=== PATIENT | female | born 1950 | race Caucasian/White ===

== ENCOUNTER 2021-02-08 02:59 | Observation (INO) ==
[2021-02-08 04:00] LABS: Basophils % 0.4 % (0.0-0.8); Eosinophils # 0.1 10*3/uL (0.0-0.87); Eosinophils % 1.7 % (0.00-10.9); Hematocrit 31.9 VOL% (35.7-47.0); Hemoglobin 10.4 GM/DL (12.0-16.0); Immature Granulocytes % 0.6 %; Immature Granulocytes Absolute 0.04 #; Lymphocytes # 1.5 10*3/uL (1.4-4.0); Lymphocytes % 21.2 % (21.3-54.2); Mean Corpuscular HGB Conc 32.6 GM/DL (32-36); Mean Corpuscular Volume 86.2 FL (87-102); Mean Platelet Volume 11.2 FL (9.6-12.0); Monocytes % 9.5 % (1.7-12.7); Neutrophils % 66.6 % (38.7-73.9); Platelet Count 178 T/CUMM (130-400); Red Cell Distribution Width 12.6 % (9.3-17.3); White Blood Count 7.1 T/CUMM (4-12)
[2021-02-08 04:18] LABS: Alanine Aminotransferase 28 U/L (13-56); Albumin 3.5 G/DL (3.4-5.0); Alkaline Phosphatase 64 U/L (45-117); Aspartate Amino Transferase 17 U/L (0-37); Bilirubin,Total < 0.39 MG/DL (0.2-1.0); Blood Urea Nitrogen 15 MG/DL (7-18); Calcium 9.5 MG/DL (8.5-10.1); Carbon Dioxide 27 MMOL/L (21-32); Estimated Glom Filtration Rate 68 ML/MIN; Glucose 249 MG/DL (74-106); Osmolality,Calculated 287.4 MOS/KG (273-304); Sodium 140 MMOL/L (136-145); Total Protein 6.8 G/DL (5.0-7.5)
[2021-02-08 04:20] LABS: INR 1.1; PT Patient Result 11.4 SECS (9.8-11.9)
[2021-02-08] MEDS ORDERED: DEXTROSE 50% 25 GM/50 ML VIAL IV PRN (04:38)
[2021-02-08] MEDS ORDERED: ONDANSETRON 4 MG/2 ML VIAL IV PRN (04:38)
[2021-02-08] MEDS ORDERED: diphenhydrAMINE CAP 25 MG CAPSULE PO PRN (04:38)
[2021-02-08] MEDS ORDERED: hydrALAZINE 20 MG/1 ML VIAL IV PRN (04:38)
[2021-02-08] MEDS ORDERED: NICOTINE 21 MG/24 HR PATCH TRANSDERM PRN (04:38)
[2021-02-08] MEDS ORDERED: GLUCAGON 1 MG VIAL IM PRN (04:38)
[2021-02-08] MEDS ORDERED: NITROGLYCERIN SL 0.4 MG TABLET SL PRN (11:07)
[2021-02-08] MEDS: RANOLAZINE 500 MG TABLET PO SCH ×2 (12:31→21:34)
[2021-02-08] MEDS: ASPIRIN EC 81 MG TABLET PO SCH (12:32)
[2021-02-08] MEDS: ISOSORBIDE MONONITRATE 30 MG TABLET PO SCH ×2 (12:32→21:34)
[2021-02-08] MEDS: TICAGRELOR 90 MG TABLET PO SCH ×2 (12:32→21:34)
[2021-02-08] MEDS ORDERED: MAGNESIUM SULF RIDER 2 GM in PREMIX 1 EACH IV PRN (17:29)
[2021-02-08] MEDS ORDERED: POTASSIUM CHLORIDE RIDER 10 MEQ in PREMIX 1 EACH IV PRN (17:29)
[2021-02-08] MEDS: COENZYME Q10 100 MG CAPSULE PO SCH (21:34)
[2021-02-08] MEDS: ROSUVASTATIN 10 MG TABLET PO SCH (21:34)
[2021-02-08] MEDS: DIAZEPAM 5 MG TABLET PO PRN (21:35)
[2021-02-09 05:42] LABS: Basophils % 0.5 % (0.0-0.8); Eosinophils # 0.2 10*3/uL (0.0-0.87); Eosinophils % 2.7 % (0.00-10.9); Hematocrit 32.9 VOL% (35.7-47.0); Hemoglobin 10.8 GM/DL (12.0-16.0); Immature Granulocytes % 0.4 %; Immature Granulocytes Absolute 0.03 #; Lymphocytes # 2.1 10*3/uL (1.4-4.0); Lymphocytes % 27.6 % (21.3-54.2); Mean Corpuscular HGB Conc 32.8 GM/DL (32-36); Mean Corpuscular Volume 86.1 FL (87-102); Mean Platelet Volume 11.1 FL (9.6-12.0); Monocytes % 8.9 % (1.7-12.7); Neutrophils % 59.9 % (38.7-73.9); Platelet Count 180 T/CUMM (130-400); Red Blood Count 3.82 MC/CUMM (3.8-5.5); Red Cell Distribution Width 12.5 % (9.3-17.3); White Blood Count 7.8 T/CUMM (4-12)
[2021-02-09] MEDS ORDERED: diphenhydrAMINE CAP 25 MG CAPSULE PO ONE (06:00)
[2021-02-09 06:02] LABS: Calcium 9.8 MG/DL (8.5-10.1); Osmolality,Calculated 279.5 MOS/KG (273-304); Potassium 4.2 MMOL/L (3.5-5.1)
[2021-02-09 06:16] LABS: Hypochromasia 1+; Microcytosis 1+; Platelet Estimate Adequate
[2021-02-09] MEDS: RANOLAZINE 500 MG TABLET PO SCH ×2 (08:40→20:22)
[2021-02-09] MEDS: ISOSORBIDE MONONITRATE 30 MG TABLET PO SCH ×2 (08:40→20:24)
[2021-02-09] MEDS: TICAGRELOR 90 MG TABLET PO SCH ×2 (08:40→20:24)
[2021-02-09] MEDS: ASPIRIN EC 81 MG TABLET PO SCH (08:40)
[2021-02-09] MEDS ORDERED: HEPARIN/NACL 0.9% 2 UNITS/ML 1,000 ML IV ONE (11:12)
[2021-02-09] MEDS ORDERED: LIDOCAINE 1% 20 ML VIAL ONE ×2 (11:12→14:01)
[2021-02-09] MEDS ORDERED: DIAZEPAM 5 MG TABLET PO ONE (11:57)
[2021-02-09] MEDS ORDERED: SODIUM CHLORIDE 0.45% 1,000 ML IV SCH (12:00)
[2021-02-09] MEDS ORDERED: MIDAZOLAM 2 MG/2 ML VIAL ONE ×4 (14:01→14:35)
[2021-02-09] MEDS ORDERED: fentaNYL 100 MCG/2 ML VIAL ONE ×2 (14:01→14:20)
[2021-02-09] MEDS ORDERED: BIVALIRUDIN 250 MG VIAL IV ONE (14:40)
[2021-02-09] MEDS ORDERED: TICAGRELOR 90 MG TABLET ONE (15:01)
[2021-02-09] MEDS ORDERED: ZALEPLON 5 MG CAPSULE PO PRN (15:35)
[2021-02-09] MEDS: COENZYME Q10 100 MG CAPSULE PO SCH (20:22)
[2021-02-09] MEDS: DIAZEPAM 5 MG TABLET PO PRN (20:28)
[2021-02-09] MEDS: ROSUVASTATIN 10 MG TABLET PO SCH (20:30)
[2021-02-10] MEDS: DIAZEPAM 5 MG TABLET PO PRN (00:32)
[2021-02-10 04:56] LABS: Basophils % 0.4 % (0.0-0.8); Eosinophils # 0.2 10*3/uL (0.0-0.87); Eosinophils % 2.1 % (0.00-10.9); Hematocrit 33.4 VOL% (35.7-47.0); Hemoglobin 10.7 GM/DL (12.0-16.0); Immature Granulocytes % 0.5 %; Immature Granulocytes Absolute 0.05 #; Lymphocytes # 1.9 10*3/uL (1.4-4.0); Lymphocytes % 18.7 % (21.3-54.2); Mean Corpuscular Volume 86.3 FL (87-102); Mean Platelet Volume 11.1 FL (9.6-12.0); Monocytes % 8.8 % (1.7-12.7); Neutrophils % 69.5 % (38.7-73.9); Platelet Count 189 T/CUMM (130-400); Red Blood Count 3.87 MC/CUMM (3.8-5.5); Red Cell Distribution Width 12.5 % (9.3-17.3); White Blood Count 9.9 T/CUMM (4-12)
[2021-02-10 05:22] LABS: Calcium 9.5 MG/DL (8.5-10.1); Osmolality,Calculated 281.5 MOS/KG (273-304); Potassium 4.6 MMOL/L (3.5-5.1)
[2021-02-10] MEDS: ASPIRIN EC 81 MG TABLET PO SCH (09:13)
[2021-02-10] MEDS: ISOSORBIDE MONONITRATE 30 MG TABLET PO SCH (09:13)
[2021-02-10] MEDS: TICAGRELOR 90 MG TABLET PO SCH (09:13)
[2021-02-10] MEDS: RANOLAZINE 500 MG TABLET PO SCH (09:13)
[2021-02-10 10:24] VITALS: BP 149/72
== END 2021-02-10 11:44 | disposition home or self-care (01) ==
LOC: EDUNIT# → EDBD → N.EDINP 02:59 → N.ED 02:59 → N.TELES 06:18
PROVIDERS: ADMIT Hospitalist; ATTEND Internal Medicine Cardiovascular Disease
PROC: CLCCHCL (ICD-10-PCS; 2021-02-09 13:45)

== ENCOUNTER 2021-03-13 14:46 | Observation (INO) ==
[2021-03-13 15:09] LABS: Basophils % 0.5 % (0.0-0.8); Eosinophils # 0.2 10*3/uL (0.0-0.87); Hematocrit 31.5 VOL% (35.7-47.0); Hemoglobin 10.3 GM/DL (12.0-16.0); Immature Granulocytes % 0.6 %; Immature Granulocytes Absolute 0.05 #; Lymphocytes # 1.4 10*3/uL (1.4-4.0); Lymphocytes % 17.4 % (21.3-54.2); Mean Corpuscular HGB Conc 32.7 GM/DL (32-36); Mean Corpuscular Volume 85.6 FL (87-102); Monocytes % 8.9 % (1.7-12.7); Neutrophils % 69.6 % (38.7-73.9); Platelet Count 196 T/CUMM (130-400); Red Blood Count 3.68 MC/CUMM (3.8-5.5); Red Cell Distribution Width 12.5 % (9.3-17.3); White Blood Count 7.9 T/CUMM (4-12)
[2021-03-13 15:29] LABS: Albumin 3.6 G/DL (3.4-5.0); Bilirubin,Total 0.4 MG/DL (0.2-1.0); Calcium 9.9 MG/DL (8.5-10.1); Osmolality,Calculated 271.4 MOS/KG (273-304); Potassium 4.7 MMOL/L (3.5-5.1); Total Protein 7.3 G/DL (6.4-8.2)
[2021-03-13] MEDS ORDERED: GLUCAGON 1 MG VIAL IM PRN (17:18)
[2021-03-13] MEDS ORDERED: ONDANSETRON 4 MG/2 ML VIAL IV PRN (17:18)
[2021-03-13] MEDS ORDERED: LACTULOSE 20 GM/30 ML UDCUP PO PRN (17:18)
[2021-03-13] MEDS ORDERED: DEXTROSE 50% 25 GM/50 ML VIAL IV PRN (17:18)
[2021-03-13] MEDS ORDERED: MECLIZINE 12.5 MG TABLET PO PRN (17:44)
[2021-03-13] MEDS ORDERED: MECLIZINE 25 MG TABLET PO PRN (17:46)
[2021-03-13] MEDS: TICAGRELOR 90 MG TABLET PO SCH (20:26)
[2021-03-13] MEDS: INSULIN LISPRO 100 UNIT/ML SUBCUT SCH (20:28)
[2021-03-13] MEDS ORDERED: ENOXAPARIN 40 MG/0.4 ML SYRINGE SUBCUT SCH (21:00)
[2021-03-13] MEDS ORDERED: ROSUVASTATIN 20 MG TABLET PO SCH (21:00)
[2021-03-14 04:17] LABS: Basophils % 0.4 % (0.0-0.8); Eosinophils # 0.3 10*3/uL (0.0-0.87); Eosinophils % 3.7 % (0.00-10.9); Hematocrit 33.3 VOL% (35.7-47.0); Hemoglobin 11.1 GM/DL (12.0-16.0); Immature Granulocytes % 0.4 %; Immature Granulocytes Absolute 0.03 #; Lymphocytes # 1.6 10*3/uL (1.4-4.0); Lymphocytes % 20.1 % (21.3-54.2); Mean Corpuscular HGB Conc 33.3 GM/DL (32-36); Mean Corpuscular Volume 85.2 FL (87-102); Monocytes % 9.3 % (1.7-12.7); Neutrophils % 66.1 % (38.7-73.9); Platelet Count 182 T/CUMM (130-400); Red Blood Count 3.91 MC/CUMM (3.8-5.5); Red Cell Distribution Width 12.7 % (9.3-17.3); White Blood Count 7.9 T/CUMM (4-12)
[2021-03-14 04:47] LABS: Calcium 9.9 MG/DL (8.5-10.1); Osmolality,Calculated 274.1 MOS/KG (273-304); Potassium 4.7 MMOL/L (3.5-5.1); Risk Ratio 2.44; VLDL CHOLESTEROL 38.6 MG/DL
[2021-03-14] MEDS: INSULIN LISPRO 100 UNIT/ML SUBCUT SCH ×2 (07:17→11:39)
[2021-03-14 07:42] VITALS: BP 115/59
[2021-03-14] MEDS ORDERED: ALBUTEROL 2.5 MG/3 ML NEB RESP TX PRN (08:56)
[2021-03-14] MEDS ORDERED: DIAZEPAM 5 MG TABLET PO PRN (08:56)
[2021-03-14] MEDS ORDERED: cloNIDine 0.1 MG TABLET PO PRN (08:56)
[2021-03-14] MEDS ORDERED: RANOLAZINE 500 MG TABLET PO SCH (09:00)
[2021-03-14] MEDS ORDERED: ASPIRIN EC 81 MG TABLET PO SCH (09:00)
[2021-03-14] MEDS ORDERED: PANTOPRAZOLE 40 MG TABLET PO SCH (09:00)
[2021-03-14] MEDS ORDERED: ISOSORBIDE MONONITRATE 30 MG TABLET PO SCH (09:00)
[2021-03-14] MEDS ORDERED: NON-FORMULARY MEDICATION (Linaclotide [Linzess] 72 mcg Capsule) PO SCH (09:00)
[2021-03-14] MEDS: TICAGRELOR 90 MG TABLET PO SCH (09:38)
[2021-03-14] MEDS ORDERED: GABAPENTIN 300 MG CAPSULE PO SCH (21:00)
[2021-03-15] MEDS ORDERED: LEVOTHYROXINE 25 MCG TABLET PO SCH (07:00)
[2021-03-15] MEDS ORDERED: OLMESARTAN 20 MG TABLET PO SCH (09:00)
[2021-03-15] MEDS ORDERED: amLODIPine 10 MG TABLET PO SCH (09:00)
[2021-03-15] MEDS ORDERED: hydroCHLOROthiazide 25 MG TABLET PO SCH (09:00)
== END 2021-03-14 12:37 | disposition home health service (06) ==
LOC: EDBD → EDUNIT# → N.EDINP 14:46 → N.ED 14:46 → SUATTDRO 17:18 → N.EDINP 18:33 → N.CC 18:57
PROVIDERS: ADMIT Internal Medicine; ATTEND Internal Medicine

== ENCOUNTER 2022-05-07 15:12 | Inpatient (IN) ==
[2022-05-07 16:11] LABS: Basophils % 0.4 % (0.0-0.8); Eosinophils # 0.2 10*3/uL (0.0-0.87); Eosinophils % 2.7 % (0.00-10.9); Hematocrit 29.1 VOL% (35.7-47.0); Hemoglobin 9.4 GM/DL (12.0-16.0); Immature Granulocytes % 0.4 %; Immature Granulocytes Absolute 0.03 #; Lymphocytes % 13.5 % (21.3-54.2); Mean Corpuscular HGB Conc 32.3 GM/DL (32-36); Mean Corpuscular Volume 83.1 FL (87-102); Mean Platelet Volume 10.5 FL (9.6-12.0); Monocytes # 0.6 10*3/uL (0.11-0.8); Monocytes % 7.8 % (1.7-12.7); Neutrophils % 75.2 % (38.7-73.9); Platelet Count 196 T/CUMM (130-400); Red Cell Distribution Width 13.6 % (9.3-17.3); White Blood Count 7.2 T/CUMM (4-12)
[2022-05-07 16:32] LABS: Alanine Aminotransferase 41 U/L (13-56); Albumin 3.7 G/DL (3.4-5.0); Alkaline Phosphatase 65 U/L (45-117); Aspartate Amino Transferase 27 U/L (0-37); Bilirubin,Total < 0.39 MG/DL (0.20-1.00); Blood Urea Nitrogen 19 MG/DL (7-18); Calcium 8.6 MG/DL (8.5-10.1); Carbon Dioxide 26 MMOL/L (21-32); Chloride 101 MMOL/L (98-107); Glucose 102 MG/DL (74-106); Osmolality,Calculated 269.2 MOS/KG (273-304); Potassium 4.9 MMOL/L (3.5-5.1); Sodium 134 MMOL/L (136-145); Total Protein 6.9 G/DL (6.4-8.2)
[2022-05-07] MEDS ORDERED: GLUCAGON 1 MG VIAL IM PRN (17:48)
[2022-05-07] MEDS ORDERED: ONDANSETRON 4 MG/2 ML VIAL IV PRN (17:48)
[2022-05-07] MEDS ORDERED: MECLIZINE 25 MG TABLET PO PRN (17:50)
[2022-05-07] MEDS ORDERED: cloNIDine 0.1 MG TABLET PO PRN (17:50)
[2022-05-07] MEDS ORDERED: DEXTROSE 10% 250 ML BAG IV PRN (18:00)
[2022-05-07 18:40] LABS: Risk Ratio 1.92; Thyroid Stimulating Hormone 8.08 uIU/ml (0.358-3.74)
[2022-05-07] MEDS: ROSUVASTATIN 20 MG TABLET PO SCH (21:31)
[2022-05-07] MEDS: ISOSORBIDE MONONITRATE 30 MG TABLET PO SCH (21:32)
[2022-05-07] MEDS: GABAPENTIN 300 MG CAPSULE PO SCH (21:32)
[2022-05-07] MEDS: VENLAFAXINE XR 37.5 MG CAPSULE PO SCH (21:32)
[2022-05-07] MEDS: RANOLAZINE 500 MG TABLET PO SCH (21:32)
[2022-05-07] MEDS: TICAGRELOR 90 MG TABLET PO SCH (21:32)
[2022-05-07] MEDS: INSULIN LISPRO 100 UNIT/ML SUBCUT SCH (21:51)
[2022-05-07 22:07] LABS: Bacteria,Urine Occasional /HPF (Few); RBC,Urine 2 /HPF (0-4)
[2022-05-07 22:08] LABS: Bilirubin,Urine Negative (Negative); Blood, Urine Negative (Negative); Glucose,Urine (UA) Negative (Negative); Ketones,Urine Negative (Negative); Nitrite,Urine Negative (Negative); Protein,Urine Negative (Negative); Urine Appearance Clear (Clear); Urine Color Yellow (Yellow); Urine Specific Gravity 1.015 (1.001-1.035); Urine Urobilinogen 0.2 eU/dL (<2.0)
[2022-05-07] MEDS ORDERED: DIAZEPAM 2 MG TABLET PO ONE (23:30)
[2022-05-08 00:22] VITALS: BP 145/70
[2022-05-08 04:05] LABS: Basophils % 0.5 % (0.0-0.8); Eosinophils # 0.3 10*3/uL (0.0-0.87); Eosinophils % 4.1 % (0.00-10.9); Hemoglobin 9.1 GM/DL (12.0-16.0); Immature Granulocytes % 0.5 %; Immature Granulocytes Absolute 0.03 #; Lymphocytes # 1.4 10*3/uL (1.4-4.0); Mean Corpuscular HGB Conc 31.4 GM/DL (32-36); Mean Corpuscular Volume 83.1 FL (87-102); Mean Platelet Volume 10.2 FL (9.6-12.0); Monocytes # 0.6 10*3/uL (0.11-0.8); Monocytes % 10.2 % (1.7-12.7); Neutrophils % 61.7 % (38.7-73.9); Platelet Count 170 T/CUMM (130-400); Red Blood Count 3.49 MC/CUMM (3.8-5.5); Red Cell Distribution Width 13.7 % (9.3-17.3); White Blood Count 6.1 T/CUMM (4-12)
[2022-05-08 04:16] LABS: Calcium 8.4 MG/DL (8.5-10.1); Osmolality,Calculated 264.7 MOS/KG (273-304); Potassium 4.4 MMOL/L (3.5-5.1)
[2022-05-08] MEDS: INSULIN LISPRO 100 UNIT/ML SUBCUT SCH ×4 (07:29→21:06)
[2022-05-08] MEDS ORDERED: DIAZEPAM 5 MG TABLET PO ONE (08:52)
[2022-05-08] MEDS ORDERED: diphenhydrAMINE CAP 25 MG CAPSULE PO ONE (08:52)
[2022-05-08] MEDS ORDERED: FUROSEMIDE 20 MG TABLET PO SCH (09:00)
[2022-05-08] MEDS ORDERED: SODIUM CHLORIDE 0.9% 1,000 ML IV SCH (09:00)
[2022-05-08] MEDS: ASPIRIN EC 81 MG TABLET PO SCH (09:16)
[2022-05-08] MEDS: OLMESARTAN 20 MG TABLET PO SCH (09:17)
[2022-05-08] MEDS: TICAGRELOR 90 MG TABLET PO SCH ×2 (09:17→21:03)
[2022-05-08] MEDS: LORATADINE 10 MG TABLET PO SCH (09:18)
[2022-05-08] MEDS: hydroCHLOROthiazide 25 MG TABLET PO SCH (09:19)
[2022-05-08] MEDS: ISOSORBIDE MONONITRATE 30 MG TABLET PO SCH ×2 (09:19→21:07)
[2022-05-08] MEDS: MAGNESIUM OXIDE 400 MG TABLET PO SCH (09:20)
[2022-05-08] MEDS: amLODIPine 5 MG TABLET PO SCH (09:21)
[2022-05-08] MEDS: PANTOPRAZOLE 40 MG TABLET PO SCH (09:23)
[2022-05-08] MEDS: RANOLAZINE 500 MG TABLET PO SCH ×2 (09:24→21:03)
[2022-05-08] MEDS: POLYETHYLENE GLYCOL POWDER 17 GM PACK PO SCH (09:24)
[2022-05-08] MEDS ORDERED: HEPARIN/NACL 0.9% 2 UNITS/ML 2,000 UNIT/1,000 ML BAG IV ONE (09:26)
[2022-05-08] MEDS ORDERED: MIDAZOLAM 2 MG/2 ML VIAL ONE ×4 (09:26→10:02)
[2022-05-08] MEDS ORDERED: fentaNYL 100 MCG/2 ML VIAL ONE ×2 (09:26→09:47)
[2022-05-08] MEDS: VENLAFAXINE XR 37.5 MG CAPSULE PO SCH ×2 (09:27→21:02)
[2022-05-08] MEDS ORDERED: ONDANSETRON 4 MG/2 ML VIAL ONE (09:37)
[2022-05-08] MEDS ORDERED: BIVALIRUDIN 250 MG VIAL IV ONE (09:52)
[2022-05-08] MEDS ORDERED: diphenhydrAMINE 50 MG/1 ML VIAL ONE (10:05)
[2022-05-08] MEDS ORDERED: DIAZEPAM 5 MG TABLET PO PRN (10:57)
[2022-05-08] MEDS ORDERED: tiZANidine 4 MG TABLET PO PRN (10:57)
[2022-05-08] MEDS ORDERED: PROMETHAZINE 25 MG TABLET PO PRN (10:57)
[2022-05-08] MEDS ORDERED: ERGOCALCIFEROL 50,000 UNIT CAPSULE PO SCH (11:00)
[2022-05-08 12:20] LABS: RBC,Urine 1 /HPF (0-4)
[2022-05-08 12:21] LABS: Bilirubin,Urine Negative (Negative); Blood, Urine Negative (Negative); Glucose,Urine (UA) Negative (Negative); Ketones,Urine Negative (Negative); Nitrite,Urine Negative (Negative); Protein,Urine Negative (Negative); Urine Appearance Clear (Clear); Urine Color Yellow (Yellow); Urine Urobilinogen 0.2 eU/dL (<2.0)
[2022-05-08] MEDS ORDERED: MULTIVITAMIN (CENTRUM) TABLET PO SCH (13:00)
[2022-05-08] MEDS ORDERED: INSULIN GLARGINE 100 UNIT/ML SUBCUT SCH (21:00)
[2022-05-08] MEDS: ROSUVASTATIN 20 MG TABLET PO SCH (21:03)
[2022-05-08] MEDS: GABAPENTIN 300 MG CAPSULE PO SCH (21:04)
[2022-05-09] MEDS: ACETAMINOPHEN 325 MG TABLET PO PRN ×2 (00:18→05:50)
[2022-05-09 04:25] LABS: Basophils % 0.4 % (0.0-0.8); Eosinophils # 0.2 10*3/uL (0.0-0.87); Hematocrit 29.1 VOL% (35.7-47.0); Hemoglobin 9.3 GM/DL (12.0-16.0); Immature Granulocytes % 0.4 %; Immature Granulocytes Absolute 0.03 #; Lymphocytes # 1.1 10*3/uL (1.4-4.0); Lymphocytes % 13.9 % (21.3-54.2); Mean Corpuscular Volume 83.1 FL (87-102); Mean Platelet Volume 10.4 FL (9.6-12.0); Monocytes # 0.7 10*3/uL (0.11-0.8); Monocytes % 8.9 % (1.7-12.7); Neutrophils % 73.4 % (38.7-73.9); Platelet Count 180 T/CUMM (130-400); Red Cell Distribution Width 13.6 % (9.3-17.3); White Blood Count 8.1 T/CUMM (4-12)
[2022-05-09 04:49] LABS: Osmolality,Calculated 268.5 MOS/KG (273-304); Potassium 4.3 MMOL/L (3.5-5.1)
[2022-05-09] MEDS: INSULIN LISPRO 100 UNIT/ML SUBCUT SCH (07:45)
[2022-05-09] MEDS: MAGNESIUM OXIDE 400 MG TABLET PO SCH (08:34)
[2022-05-09] MEDS: LORATADINE 10 MG TABLET PO SCH (08:34)
[2022-05-09] MEDS: amLODIPine 5 MG TABLET PO SCH (08:34)
[2022-05-09] MEDS: TICAGRELOR 90 MG TABLET PO SCH (08:34)
[2022-05-09] MEDS: OLMESARTAN 20 MG TABLET PO SCH (08:34)
[2022-05-09] MEDS: hydroCHLOROthiazide 25 MG TABLET PO SCH (08:34)
[2022-05-09] MEDS: PANTOPRAZOLE 40 MG TABLET PO SCH (08:35)
[2022-05-09] MEDS: ISOSORBIDE MONONITRATE 30 MG TABLET PO SCH (08:35)
[2022-05-09] MEDS: VENLAFAXINE XR 37.5 MG CAPSULE PO SCH (08:35)
[2022-05-09] MEDS: RANOLAZINE 500 MG TABLET PO SCH (08:35)
[2022-05-09] MEDS: ASPIRIN EC 81 MG TABLET PO SCH (08:35)
[2022-05-09] MEDS: POLYETHYLENE GLYCOL POWDER 17 GM PACK PO SCH (08:42)
[2022-05-09] MEDS ORDERED: PANTOPRAZOLE 40 MG TABLET PO SCH (09:00)
[2022-05-09] MEDS ORDERED: NON-FORMULARY MEDICATION (Linaclotide [Linzess] 72 mcg Capsule) PO SCH (09:00)
== END 2022-05-09 11:35 | disposition home or self-care (01) | DRG 247 ==
LOC: EDUNIT# → EDBD → N.EDINP 15:12 → N.ED 15:12 → N.EDINP 23:58 → N.CC 05-08 00:05 → SUATTDRO 05-08 13:51
PROVIDERS: ADMIT Internal Medicine; ATTEND Internal Medicine
PROC: CLCCHCL (ICD-10-PCS; 2022-05-08 09:45)

== ENCOUNTER 2022-05-23 16:50 | Observation (INO) ==
[2022-05-23] MEDS ORDERED: PANTOPRAZOLE 40 MG VIAL IV STA (18:41)
[2022-05-23] MEDS ORDERED: ONDANSETRON 4 MG/2 ML VIAL IV STA (18:41)
[2022-05-23] MEDS ORDERED: FUROSEMIDE 40 MG/4 ML VIAL IV STA (18:41)
[2022-05-23 19:36] LABS: Basophils % 0.5 % (0.0-0.8); Eosinophils # 0.2 10*3/uL (0.0-0.87); Eosinophils % 2.8 % (0.00-10.9); Hematocrit 31.4 VOL% (35.7-47.0); Hemoglobin 10.1 GM/DL (12.0-16.0); Immature Granulocytes % 0.7 %; Immature Granulocytes Absolute 0.06 #; Lymphocytes % 11.4 % (21.3-54.2); Mean Corpuscular HGB Conc 32.2 GM/DL (32-36); Mean Corpuscular Volume 84.6 FL (87-102); Mean Platelet Volume 10.4 FL (9.6-12.0); Monocytes # 0.6 10*3/uL (0.11-0.8); Neutrophils % 77.6 % (38.7-73.9); Platelet Count 258 T/CUMM (130-400); Red Blood Count 3.71 MC/CUMM (3.8-5.5); Red Cell Distribution Width 14.5 % (9.3-17.3); White Blood Count 8.5 T/CUMM (4-12)
[2022-05-23 19:44] LABS: Bilirubin,Urine Negative (Negative); Blood, Urine Negative (Negative); Glucose,Urine (UA) Negative (Negative); Ketones,Urine Negative (Negative); Nitrite,Urine Negative (Negative); Protein,Urine Negative (Negative); RBC,Urine 2 /HPF (0-4); Squamous Epithelial Cell,Urine Occasional /HPF (0-10); Urine Appearance Clear (Clear); Urine Color Yellow (Yellow)
[2022-05-23 19:45] LABS: Urine Urobilinogen 0.2 eU/dL (<2.0)
[2022-05-23 20:01] LABS: Alanine Aminotransferase 30 U/L (13-56); Alkaline Phosphatase 69 U/L (45-117); Amylase 46 U/L (25-115); Aspartate Amino Transferase 21 U/L (0-37); Blood Urea Nitrogen 16 MG/DL (7-18); Calcium 9.4 MG/DL (8.5-10.1); Carbon Dioxide 30 MMOL/L (21-32); Chloride 104 MMOL/L (98-107); Glucose 156 MG/DL (74-106); Osmolality,Calculated 280.5 MOS/KG (273-304); Potassium 4.2 MMOL/L (3.5-5.1); Sodium 139 MMOL/L (136-145); Total Protein 7.7 G/DL (6.4-8.2)
[2022-05-23] MEDS ORDERED: ONDANSETRON 4 MG/2 ML VIAL IV PRN (22:22)
[2022-05-23] MEDS ORDERED: DEXTROSE 50% 25 GM/50 ML VIAL IV PRN (22:22)
[2022-05-23] MEDS ORDERED: GLUCAGON 1 MG VIAL IM PRN ×2 (22:22)
[2022-05-23] MEDS ORDERED: PROMETHAZINE 25 MG TABLET PO PRN (22:28)
[2022-05-23] MEDS ORDERED: cloNIDine 0.1 MG TABLET PO PRN (22:28)
[2022-05-23] MEDS ORDERED: DEXTROSE 10% 250 ML BAG IV PRN (22:48)
[2022-05-23] MEDS: GABAPENTIN 300 MG CAPSULE PO SCH (23:25)
[2022-05-23] MEDS: TICAGRELOR 90 MG TABLET PO SCH (23:25)
[2022-05-23] MEDS ORDERED: ISOSORBIDE MONONITRATE 30 MG TABLET PO ONE (23:30)
[2022-05-23] MEDS: VENLAFAXINE XR 37.5 MG CAPSULE PO SCH (23:50)
[2022-05-23] MEDS: RANOLAZINE 500 MG TABLET PO SCH (23:50)
[2022-05-24] MEDS ORDERED: SODIUM PHOSPHATE ENEMA 133 ML BOTTLE RECTAL ONE ×2 (00:09→02:00)
[2022-05-24 01:58] LABS: Basophils % 0.5 % (0.0-0.8); Eosinophils # 0.2 10*3/uL (0.0-0.87); Eosinophils % 2.3 % (0.00-10.9); Hematocrit 30.7 VOL% (35.7-47.0); Hemoglobin 9.6 GM/DL (12.0-16.0); Immature Granulocytes % 0.3 %; Immature Granulocytes Absolute 0.03 #; Lymphocytes # 1.4 10*3/uL (1.4-4.0); Lymphocytes % 15.6 % (21.3-54.2); Mean Corpuscular HGB Conc 31.3 GM/DL (32-36); Mean Corpuscular Volume 84.8 FL (87-102); Mean Platelet Volume 10.4 FL (9.6-12.0); Monocytes % 11.1 % (1.7-12.7); Neutrophils % 70.2 % (38.7-73.9); Platelet Count 235 T/CUMM (130-400); Red Blood Count 3.62 MC/CUMM (3.8-5.5); Red Cell Distribution Width 14.4 % (9.3-17.3); White Blood Count 8.8 T/CUMM (4-12)
[2022-05-24 02:21] LABS: Albumin 3.7 G/DL (3.4-5.0); Bilirubin,Total 0.4 MG/DL (0.20-1.00); Calcium 9.3 MG/DL (8.5-10.1); Osmolality,Calculated 277.7 MOS/KG (273-304); Potassium 4.2 MMOL/L (3.5-5.1); Total Protein 7.5 G/DL (6.4-8.2)
[2022-05-24] MEDS ORDERED: INSULIN REGULAR 100 UNIT/ML SUBCUT SCH (07:30)
[2022-05-24] MEDS: INSULIN REGULAR 100 UNIT/ML SUBCUT SCH ×4 (08:37→21:31)
[2022-05-24] MEDS: FUROSEMIDE 20 MG TABLET PO SCH (08:38)
[2022-05-24] MEDS: COENZYME Q10 100 MG CAPSULE PO SCH (08:38)
[2022-05-24] MEDS: RANOLAZINE 500 MG TABLET PO SCH ×2 (08:39→21:29)
[2022-05-24] MEDS: VENLAFAXINE XR 37.5 MG CAPSULE PO SCH ×2 (08:39→21:30)
[2022-05-24] MEDS: OLMESARTAN 20 MG TABLET PO SCH (08:39)
[2022-05-24] MEDS: ISOSORBIDE MONONITRATE 30 MG TABLET PO SCH ×2 (08:39→21:30)
[2022-05-24] MEDS: hydroCHLOROthiazide 25 MG TABLET PO SCH (08:39)
[2022-05-24] MEDS: MAGNESIUM OXIDE 400 MG TABLET PO SCH (08:41)
[2022-05-24] MEDS: TICAGRELOR 90 MG TABLET PO SCH ×2 (08:41→21:29)
[2022-05-24] MEDS: PANTOPRAZOLE 40 MG TABLET PO SCH (08:41)
[2022-05-24] MEDS: DIAZEPAM 5 MG TABLET PO PRN ×2 (08:41→16:20)
[2022-05-24] MEDS: ASPIRIN EC 81 MG TABLET PO SCH (08:41)
[2022-05-24] MEDS: OMEGA 3 ACID ETHYL ESTERS 1 GM CAPSULE PO SCH (08:41)
[2022-05-24] MEDS: LORATADINE 10 MG TABLET PO SCH (08:41)
[2022-05-24] MEDS: ROSUVASTATIN 20 MG TABLET PO SCH (08:41)
[2022-05-24] MEDS ORDERED: amLODIPine 5 MG TABLET PO SCH (09:00)
[2022-05-24] MEDS ORDERED: hydroCHLOROthiazide 25 MG TABLET PO SCH (09:00)
[2022-05-24] MEDS ORDERED: POLYETHYLENE GLYCOL POWDER 17 GM PACK PO SCH (09:00)
[2022-05-24] MEDS ORDERED: amLODIPine 10 MG TABLET PO SCH (09:00)
[2022-05-24] MEDS ORDERED: KETOROLAC 15 MG/1 ML VIAL IV PRN (09:45)
[2022-05-24] MEDS ORDERED: tiZANidine 4 MG TABLET PO ONE (10:00)
[2022-05-24] MEDS ORDERED: KETOROLAC 30 MG/1 ML VIAL IV ONE (10:00)
[2022-05-24] MEDS: DOCUSATE SODIUM 100 MG CAPSULE PO SCH (10:30)
[2022-05-24] MEDS ORDERED: amLODIPine 5 MG TABLET PO ONE (10:36)
[2022-05-24] MEDS: MECLIZINE 25 MG TABLET PO PRN (16:20)
[2022-05-24] MEDS ORDERED: LACTULOSE 20 GM/30 ML UDCUP PO ONE ×2 (17:00→21:48)
[2022-05-24] MEDS: GABAPENTIN 300 MG CAPSULE PO SCH (21:29)
[2022-05-24] MEDS: INSULIN GLARGINE 100 UNIT/ML SUBCUT SCH (21:30)
[2022-05-25] MEDS: DIAZEPAM 5 MG TABLET PO PRN ×2 (03:59→21:49)
[2022-05-25] MEDS: INSULIN REGULAR 100 UNIT/ML SUBCUT SCH ×4 (08:29→22:20)
[2022-05-25] MEDS: POLYETHYLENE GLYCOL POWDER 17 GM PACK PO SCH ×2 (09:45→21:50)
[2022-05-25] MEDS: FUROSEMIDE 20 MG TABLET PO SCH (09:46)
[2022-05-25] MEDS: ISOSORBIDE MONONITRATE 30 MG TABLET PO SCH ×2 (09:46→21:49)
[2022-05-25] MEDS: VENLAFAXINE XR 37.5 MG CAPSULE PO SCH ×2 (09:47→21:49)
[2022-05-25] MEDS: hydroCHLOROthiazide 25 MG TABLET PO SCH (09:47)
[2022-05-25] MEDS: COENZYME Q10 100 MG CAPSULE PO SCH (09:47)
[2022-05-25] MEDS: OLMESARTAN 20 MG TABLET PO SCH (09:47)
[2022-05-25] MEDS: RANOLAZINE 500 MG TABLET PO SCH ×2 (09:47→21:49)
[2022-05-25] MEDS: ROSUVASTATIN 20 MG TABLET PO SCH (09:48)
[2022-05-25] MEDS: MAGNESIUM OXIDE 400 MG TABLET PO SCH (09:48)
[2022-05-25] MEDS: amLODIPine 5 MG TABLET PO SCH (09:48)
[2022-05-25] MEDS: ASPIRIN EC 81 MG TABLET PO SCH (09:48)
[2022-05-25] MEDS: PANTOPRAZOLE 40 MG TABLET PO SCH (09:48)
[2022-05-25] MEDS: OMEGA 3 ACID ETHYL ESTERS 1 GM CAPSULE PO SCH (09:48)
[2022-05-25] MEDS: DOCUSATE SODIUM 100 MG CAPSULE PO SCH (09:48)
[2022-05-25] MEDS: TICAGRELOR 90 MG TABLET PO SCH ×2 (09:48→21:49)
[2022-05-25] MEDS: LORATADINE 10 MG TABLET PO SCH (09:48)
[2022-05-25] MEDS ORDERED: LACTULOSE 20 GM/30 ML UDCUP PO PRN (10:47)
[2022-05-25] MEDS: tiZANidine 4 MG TABLET PO PRN (11:58)
[2022-05-25] MEDS: MECLIZINE 25 MG TABLET PO PRN (16:20)
[2022-05-25] MEDS: GABAPENTIN 300 MG CAPSULE PO SCH (21:49)
[2022-05-25] MEDS: INSULIN GLARGINE 100 UNIT/ML SUBCUT SCH (21:50)
[2022-05-26] MEDS: tiZANidine 4 MG TABLET PO PRN (00:30)
[2022-05-26] MEDS: INSULIN REGULAR 100 UNIT/ML SUBCUT SCH ×2 (07:33→11:45)
[2022-05-26 07:43] VITALS: BP 148/42
[2022-05-26] MEDS: COENZYME Q10 100 MG CAPSULE PO SCH (09:32)
[2022-05-26] MEDS: RANOLAZINE 500 MG TABLET PO SCH (09:32)
[2022-05-26] MEDS: OLMESARTAN 20 MG TABLET PO SCH (09:32)
[2022-05-26] MEDS: ROSUVASTATIN 20 MG TABLET PO SCH (09:33)
[2022-05-26] MEDS: OMEGA 3 ACID ETHYL ESTERS 1 GM CAPSULE PO SCH (09:33)
[2022-05-26] MEDS: TICAGRELOR 90 MG TABLET PO SCH (09:33)
[2022-05-26] MEDS: MAGNESIUM OXIDE 400 MG TABLET PO SCH (09:33)
[2022-05-26] MEDS: VENLAFAXINE XR 37.5 MG CAPSULE PO SCH (09:33)
[2022-05-26] MEDS: hydroCHLOROthiazide 25 MG TABLET PO SCH (09:33)
[2022-05-26] MEDS: ISOSORBIDE MONONITRATE 30 MG TABLET PO SCH (09:33)
[2022-05-26] MEDS: FUROSEMIDE 20 MG TABLET PO SCH (09:34)
[2022-05-26] MEDS: LORATADINE 10 MG TABLET PO SCH (09:34)
[2022-05-26] MEDS: amLODIPine 5 MG TABLET PO SCH (09:34)
[2022-05-26] MEDS: ASPIRIN EC 81 MG TABLET PO SCH (09:34)
[2022-05-26] MEDS: DOCUSATE SODIUM 100 MG CAPSULE PO SCH (09:34)
[2022-05-26] MEDS: PANTOPRAZOLE 40 MG TABLET PO SCH (09:34)
[2022-05-26] MEDS: MECLIZINE 25 MG TABLET PO PRN (09:41)
[2022-05-26] MEDS: DIAZEPAM 5 MG TABLET PO PRN (09:43)
[2022-05-28] MEDS ORDERED: ERGOCALCIFEROL 50,000 UNIT CAPSULE PO SCH (09:00)
== END 2022-05-26 12:45 | disposition home or self-care (01) ==
LOC: N.ED 16:50 → N.EDINP 16:50 → SUATTDRO 22:22 → N.3E 05-24 00:40
PROVIDERS: ADMIT Internal Medicine; ATTEND Internal Medicine

== ENCOUNTER 2022-07-04 08:22 | Inpatient (IN) ==
[2022-07-04] MEDS ORDERED: ONDANSETRON 4 MG/2 ML VIAL IV STA (08:47)
[2022-07-04] MEDS ORDERED: ALUM/MAG/SIMETH/LIDO VISC 1:1 30 ML BOTTLE PO STA ×2 (08:47→11:35)
[2022-07-04] MEDS ORDERED: NITROGLYCERIN 2% OINT 1 INCH/GM PACK TOP STA (08:47)
[2022-07-04] MEDS ORDERED: ASPIRIN 325 MG TABLET PO STA (08:47)
[2022-07-04] MEDS ORDERED: HEPARIN 5,000 UNIT/1 ML VIAL IV ONE (08:47)
[2022-07-04] MEDS ORDERED: MORPHINE 2 MG/1 ML SYRINGE IV STA (08:47)
[2022-07-04 08:54] LABS: Basophils % 0.2 % (0.0-0.8); Eosinophils # 0.2 10*3/uL (0.0-0.87); Eosinophils % 2.3 % (0.00-10.9); Hematocrit 30.4 VOL% (35.7-47.0); Hemoglobin 9.8 GM/DL (12.0-16.0); Immature Granulocytes % 0.5 %; Immature Granulocytes Absolute 0.04 #; Lymphocytes # 0.9 10*3/uL (1.4-4.0); Lymphocytes % 10.2 % (21.3-54.2); Mean Corpuscular HGB Conc 32.2 GM/DL (32-36); Mean Corpuscular Volume 82.4 FL (87-102); Mean Platelet Volume 10.7 FL (9.6-12.0); Monocytes # 0.5 10*3/uL (0.11-0.8); Monocytes % 5.7 % (1.7-12.7); Neutrophils % 81.1 % (38.7-73.9); Platelet Count 183 T/CUMM (130-400); Red Blood Count 3.69 MC/CUMM (3.8-5.5); Red Cell Distribution Width 13.2 % (9.3-17.3); White Blood Count 8.4 T/CUMM (4-12)
[2022-07-04 09:02] LABS: PT Patient Result 11.4 SECS (10.1-12.1); Partial Thromboplastin Time 25.9 SECS (23.7-32.9)
[2022-07-04 09:08] LABS: Albumin 3.6 G/DL (3.4-5.0); Bilirubin,Total 0.4 MG/DL (0.20-1.00); Calcium 8.3 MG/DL (8.5-10.1); Osmolality,Calculated 278.8 MOS/KG (273-304); Potassium 4.1 MMOL/L (3.5-5.1)
[2022-07-04 10:19] LABS: Bilirubin,Urine Negative (Negative); Blood, Urine Negative (Negative); Glucose,Urine (UA) Negative (Negative); Ketones,Urine Negative (Negative); Nitrite,Urine Negative (Negative); Protein,Urine Negative (Negative); Renal Epithelial Cells,Urine Rare /HPF (<1); Urine Appearance Clear (Clear); Urine Color Yellow (Yellow); Urine Specific Gravity 1.015 (1.001-1.035); Urine Urobilinogen 0.2 eU/dL (<2.0)
[2022-07-04 10:56] LABS: Barbiturates Screen,Urine Negative (Negative); Benzodiazepines Screen,Urine Positive (Negative); Cannabinoid Screen,Urine Negative (Negative); Opiate Screen,Urine Negative (Negative); Phencyclidine Screen,Urine Negative (Negative)
[2022-07-04] MEDS ORDERED: ZALEPLON 5 MG CAPSULE PO PRN (11:34)
[2022-07-04] MEDS ORDERED: MAGNESIUM SULF RIDER 2 GM/50 ML PREMIX IV PRN ×2 (11:34→17:30)
[2022-07-04] MEDS ORDERED: diphenhydrAMINE CAP 25 MG CAPSULE PO PRN (11:34)
[2022-07-04] MEDS ORDERED: MAGNESIUM SULF RIDER 4 GM/100 ML PREMIX IV PRN (11:34)
[2022-07-04] MEDS ORDERED: DIAZEPAM 5 MG TABLET PO PRN ×2 (11:35→11:41)
[2022-07-04] MEDS ORDERED: cloNIDine 0.1 MG TABLET PO PRN (11:35)
[2022-07-04] MEDS ORDERED: PROMETHAZINE 25 MG TABLET PO PRN (11:35)
[2022-07-04] MEDS ORDERED: GLUCAGON 1 MG VIAL IM PRN (11:46)
[2022-07-04] MEDS ORDERED: DEXTROSE 10% 250 ML BAG IV PRN ×2 (11:52→13:37)
[2022-07-04] MEDS: ASPIRIN EC 81 MG TABLET PO SCH (11:56)
[2022-07-04] MEDS ORDERED: DIAZEPAM 5 MG TABLET PO ONE ×2 (12:00→17:30)
[2022-07-04] MEDS ORDERED: tiZANidine 4 MG TABLET PO PRN (12:00)
[2022-07-04] MEDS ORDERED: VENLAFAXINE XR 37.5 MG CAPSULE PO PRN (12:00)
[2022-07-04] MEDS: SODIUM CHLORIDE 0.9% 1,000 ML IV SCH (12:35)
[2022-07-04] MEDS: ISOSORBIDE MONONITRATE 30 MG TABLET PO SCH ×2 (12:35→20:33)
[2022-07-04] MEDS: PANTOPRAZOLE 40 MG TABLET PO SCH ×2 (12:35→20:35)
[2022-07-04] MEDS: TICAGRELOR 90 MG TABLET PO SCH ×2 (12:35→20:33)
[2022-07-04] MEDS ORDERED: LACTULOSE 20 GM/30 ML UDCUP PO PRN (13:45)
[2022-07-04] MEDS ORDERED: ALBUTEROL 2.5 MG/3 ML NEB RESP TX PRN (15:00)
[2022-07-04] MEDS: INSULIN REGULAR 100 UNIT/ML SUBCUT SCH ×2 (16:22→20:38)
[2022-07-04] MEDS ORDERED: diphenhydrAMINE CAP 25 MG CAPSULE PO ONE (17:30)
[2022-07-04] MEDS ORDERED: POTASSIUM CHLORIDE RIDER 10 MEQ/100 ML PREMIX IV PRN (17:30)
[2022-07-04] MEDS: GABAPENTIN 300 MG CAPSULE PO SCH (20:34)
[2022-07-04] MEDS: ROSUVASTATIN 20 MG TABLET PO SCH (20:34)
[2022-07-04] MEDS: INSULIN GLARGINE 100 UNIT/ML SUBCUT SCH (20:36)
[2022-07-04] MEDS ORDERED: RANOLAZINE 500 MG TABLET PO SCH (21:00)
[2022-07-04] MEDS: NITROGLYCERIN SL 0.4 MG TABLET SL PRN ×2 (22:07→22:23)
[2022-07-04] MEDS: MORPHINE 2 MG/1 ML SYRINGE IV PRN (22:47)
[2022-07-04] MEDS ORDERED: ALUM/MAG/SIMETH/LIDO VISC 1:1 30 ML BOTTLE PO ONE (23:19)
[2022-07-04 23:42] VITALS: BP 164/95
[2022-07-04] MEDS ORDERED: HEPARIN DRIP 25,000 UNITS/500 ML PREMIX IV SCH (23:45)
[2022-07-04] MEDS ORDERED: NITROGLYCERIN DRIP 50 MG/250 ML BOTTLE IV PRN (23:53)
[2022-07-05] MEDS: [UNRECOGNIZED DRUG - OTHER] PO SCH ×3 (00:06→20:53)
[2022-07-05] MEDS: NON-FORMULARY MEDICATION (Coq10 (Ubiquinol) 200 mg Capsule) PO SCH ×2 (00:07→20:53)
[2022-07-05] MEDS: SODIUM CHLORIDE 0.9% 1,000 ML IV SCH ×4 (00:20→22:28)
[2022-07-05] MEDS ORDERED: DIAZEPAM 5 MG TABLET PO ONE (00:41)
[2022-07-05] MEDS: MORPHINE 2 MG/1 ML SYRINGE IV PRN ×4 (00:43→10:25)
[2022-07-05] MEDS: ONDANSETRON 4 MG/2 ML VIAL IV PRN ×2 (00:43→10:23)
[2022-07-05 01:50] LABS: Bacteria,Urine Occasional /HPF (Few); Hyaline Casts,Urine 3 /LPF (0-3); RBC,Urine 1 /HPF (0-4); Squamous Epithelial Cell,Urine Occasional /HPF (0-10)
[2022-07-05 01:51] LABS: Bilirubin,Urine Negative (Negative); Blood, Urine Small mg/dL (Negative); Glucose,Urine (UA) 100 mg/dL (Negative); Ketones,Urine Negative (Negative); Nitrite,Urine Negative (Negative); Protein,Urine 30 mg/dL (Negative); Urine Appearance Clear (Clear); Urine Color Yellow (Yellow); Urine Specific Gravity 1.015 (1.001-1.035); Urine Urobilinogen 0.2 eU/dL (<2.0)
[2022-07-05 06:16] LABS: Basophils % 0.2 % (0.0-0.8); Eosinophils % 0.1 % (0.00-10.9); Hematocrit 35.2 VOL% (35.7-47.0); Hemoglobin 11.3 GM/DL (12.0-16.0); Immature Granulocytes % 0.5 %; Immature Granulocytes Absolute 0.06 #; Lymphocytes % 7.4 % (21.3-54.2); Mean Corpuscular HGB Conc 32.1 GM/DL (32-36); Mean Corpuscular Volume 82.2 FL (87-102); Mean Platelet Volume 10.9 FL (9.6-12.0); Monocytes # 0.4 10*3/uL (0.11-0.8); Monocytes % 3.3 % (1.7-12.7); Neutrophils % 88.5 % (38.7-73.9); Platelet Count 207 T/CUMM (130-400); Red Blood Count 4.28 MC/CUMM (3.8-5.5); Red Cell Distribution Width 13.2 % (9.3-17.3); White Blood Count 12.9 T/CUMM (4-12)
[2022-07-05 06:38] LABS: Alanine Aminotransferase 28 U/L (13-56); Albumin 3.8 G/DL (3.4-5.0); Alkaline Phosphatase 79 U/L (45-117); Aspartate Amino Transferase 38 U/L (0-37); Bilirubin,Total < 0.39 MG/DL (0.20-1.00); Blood Urea Nitrogen 13 MG/DL (7-18); Calcium 8.3 MG/DL (8.5-10.1); Carbon Dioxide 27 MMOL/L (21-32); Chloride 103 MMOL/L (98-107); Glucose 247 MG/DL (74-106); Potassium 4.4 MMOL/L (3.5-5.1); Sodium 136 MMOL/L (136-145); Total Protein 8.1 G/DL (6.4-8.2)
[2022-07-05 06:39] LABS: Calcium 8.2 MG/DL (8.5-10.1); Osmolality,Calculated 277.1 MOS/KG (273-304); Potassium 4.4 MMOL/L (3.5-5.1)
[2022-07-05] MEDS ORDERED: HEPARIN/NACL 0.9% 2 UNITS/ML 2,000 UNIT/1,000 ML BAG IV ONE (07:35)
[2022-07-05] MEDS: INSULIN REGULAR 100 UNIT/ML SUBCUT SCH ×4 (07:52→20:50)
[2022-07-05] MEDS: POLYETHYLENE GLYCOL POWDER 17 GM PACK PO SCH (08:03)
[2022-07-05] MEDS: FEXOFENADINE 180 MG TABLET PO SCH (08:04)
[2022-07-05] MEDS: PANTOPRAZOLE 40 MG TABLET PO SCH ×2 (08:14→20:48)
[2022-07-05] MEDS: ISOSORBIDE MONONITRATE 30 MG TABLET PO SCH ×2 (08:14→20:47)
[2022-07-05] MEDS: OLMESARTAN 20 MG TABLET PO SCH (08:14)
[2022-07-05] MEDS: hydroCHLOROthiazide 25 MG TABLET PO SCH (08:14)
[2022-07-05] MEDS: LEVOTHYROXINE 137 MCG TABLET PO SCH (08:14)
[2022-07-05] MEDS: TICAGRELOR 90 MG TABLET PO SCH ×2 (08:14→20:47)
[2022-07-05] MEDS: ASPIRIN EC 81 MG TABLET PO SCH (08:14)
[2022-07-05] MEDS: MAGNESIUM OXIDE 400 MG TABLET PO SCH (08:14)
[2022-07-05] MEDS ORDERED: FUROSEMIDE 20 MG TABLET PO PRN (09:00)
[2022-07-05] MEDS ORDERED: fentaNYL 100 MCG/2 ML VIAL ONE ×2 (11:02→11:24)
[2022-07-05] MEDS ORDERED: MIDAZOLAM 2 MG/2 ML VIAL ONE ×4 (11:02→11:44)
[2022-07-05] MEDS ORDERED: HEPARIN 5,000 UNIT/1 ML VIAL ONE (11:25)
[2022-07-05] MEDS ORDERED: HEPARIN/NACL 0.9% 2 UNITS/ML 1,000 UNIT/500 ML BAG IV ONE (11:42)
[2022-07-05] MEDS: amLODIPine 5 MG TABLET PO SCH (13:43)
[2022-07-05] MEDS: CALCIUM (CARBONATE) 500 MG TABLET PO SCH (13:43)
[2022-07-05] MEDS: MULTIVITAMIN (CENTRUM) TABLET PO SCH (13:43)
[2022-07-05] MEDS: GABAPENTIN 100 MG CAPSULE PO SCH (13:44)
[2022-07-05] MEDS: FAMOTIDINE 20 MG TABLET PO SCH (13:44)
[2022-07-05] MEDS: DOCUSATE SODIUM 100 MG CAPSULE PO SCH (13:44)
[2022-07-05] MEDS: MECLIZINE 25 MG TABLET PO PRN (18:56)
[2022-07-05] MEDS: ROSUVASTATIN 20 MG TABLET PO SCH (20:48)
[2022-07-05] MEDS: GABAPENTIN 300 MG CAPSULE PO SCH (20:48)
[2022-07-05] MEDS: INSULIN GLARGINE 100 UNIT/ML SUBCUT SCH (21:15)
[2022-07-06] MEDS: MECLIZINE 25 MG TABLET PO PRN (01:15)
[2022-07-06 05:59] LABS: Basophils % 0.3 % (0.0-0.8); Eosinophils # 0.1 10*3/uL (0.0-0.87); Eosinophils % 1.2 % (0.00-10.9); Hematocrit 31.6 VOL% (35.7-47.0); Hemoglobin 9.9 GM/DL (12.0-16.0); Immature Granulocytes % 0.4 %; Immature Granulocytes Absolute 0.04 #; Lymphocytes # 0.9 10*3/uL (1.4-4.0); Lymphocytes % 9.2 % (21.3-54.2); Mean Corpuscular HGB Conc 31.3 GM/DL (32-36); Monocytes # 0.8 10*3/uL (0.11-0.8); Neutrophils % 80.9 % (38.7-73.9); Platelet Count 181 T/CUMM (130-400); Red Blood Count 3.76 MC/CUMM (3.8-5.5); Red Cell Distribution Width 13.2 % (9.3-17.3); White Blood Count 10.1 T/CUMM (4-12)
[2022-07-06] MEDS: SODIUM CHLORIDE 0.9% 1,000 ML IV SCH (06:18)
[2022-07-06 06:19] LABS: Calcium 7.3 MG/DL (8.5-10.1); Osmolality,Calculated 278.7 MOS/KG (273-304); Potassium 4.1 MMOL/L (3.5-5.1)
[2022-07-06] MEDS: INSULIN REGULAR 100 UNIT/ML SUBCUT SCH ×2 (08:34→12:28)
[2022-07-06] MEDS: FEXOFENADINE 180 MG TABLET PO SCH (08:43)
[2022-07-06] MEDS: TICAGRELOR 90 MG TABLET PO SCH (08:43)
[2022-07-06] MEDS: ASPIRIN EC 81 MG TABLET PO SCH (08:44)
[2022-07-06] MEDS: OLMESARTAN 20 MG TABLET PO SCH (08:44)
[2022-07-06] MEDS: MULTIVITAMIN (CENTRUM) TABLET PO SCH (08:45)
[2022-07-06] MEDS: DOCUSATE SODIUM 100 MG CAPSULE PO SCH (08:45)
[2022-07-06] MEDS: hydroCHLOROthiazide 25 MG TABLET PO SCH (08:46)
[2022-07-06] MEDS: ISOSORBIDE MONONITRATE 30 MG TABLET PO SCH (08:46)
[2022-07-06] MEDS: GABAPENTIN 100 MG CAPSULE PO SCH (08:47)
[2022-07-06] MEDS: POLYETHYLENE GLYCOL POWDER 17 GM PACK PO SCH (08:47)
[2022-07-06] MEDS: MAGNESIUM OXIDE 400 MG TABLET PO SCH (08:47)
[2022-07-06] MEDS: FAMOTIDINE 20 MG TABLET PO SCH (08:48)
[2022-07-06] MEDS: CALCIUM (CARBONATE) 500 MG TABLET PO SCH (08:48)
[2022-07-06] MEDS: amLODIPine 5 MG TABLET PO SCH (08:48)
[2022-07-06] MEDS: LEVOTHYROXINE 137 MCG TABLET PO SCH (08:49)
[2022-07-06] MEDS: PANTOPRAZOLE 40 MG TABLET PO SCH (08:49)
[2022-07-06] MEDS: [UNRECOGNIZED DRUG - OTHER] PO SCH (08:52)
[2022-07-09] MEDS ORDERED: ERGOCALCIFEROL 50,000 UNIT CAPSULE PO SCH (09:00)
== END 2022-07-06 12:47 | disposition home or self-care (01) | DRG 246 ==
LOC: N.EDINP 08:22 → N.ED 08:22 → N.EDINP 13:08 → N.2W 13:28 → N.CC 23:42
PROVIDERS: ADMIT Internal Medicine Cardiovascular Disease; ATTEND Internal Medicine Cardiovascular Disease
PROC: CLCCHCL (ICD-10-PCS; 2022-07-05 11:15)

== ENCOUNTER 2022-07-25 13:51 | Observation (INO) ==
[2022-07-25] MEDS ORDERED: ALUMINUM/MAGNES/SIMETH MAX STR 30 ML UDCUP PO PRN (14:01)
[2022-07-25] MEDS ORDERED: ZALEPLON 5 MG CAPSULE PO PRN (14:01)
[2022-07-25] MEDS ORDERED: ONDANSETRON 4 MG/2 ML VIAL IV PRN (14:01)
[2022-07-25] MEDS ORDERED: NITROGLYCERIN SL 0.4 MG TABLET SL PRN (14:40)
[2022-07-25] MEDS: PANTOPRAZOLE 40 MG TABLET PO SCH (16:19)
[2022-07-25] MEDS ORDERED: ENOXAPARIN 40 MG/0.4 ML SYRINGE SUBCUT SCH (17:00)
[2022-07-25 17:27] LABS: Basophils % 0.2 % (0.0-0.8); Eosinophils # 0.1 10*3/uL (0.0-0.87); Eosinophils % 1.7 % (0.00-10.9); Hematocrit 30.9 VOL% (35.7-47.0); Hemoglobin 9.8 GM/DL (12.0-16.0); Immature Granulocytes % 0.5 %; Immature Granulocytes Absolute 0.04 #; Lymphocytes # 1.3 10*3/uL (1.4-4.0); Lymphocytes % 16.1 % (21.3-54.2); Mean Corpuscular HGB Conc 31.7 GM/DL (32-36); Mean Corpuscular Volume 82.6 FL (87-102); Mean Platelet Volume 10.4 FL (9.6-12.0); Monocytes # 0.7 10*3/uL (0.11-0.8); Monocytes % 8.4 % (1.7-12.7); Neutrophils % 73.1 % (38.7-73.9); Platelet Count 196 T/CUMM (130-400); Red Blood Count 3.74 MC/CUMM (3.8-5.5); Red Cell Distribution Width 13.4 % (9.3-17.3); White Blood Count 8.3 T/CUMM (4-12)
[2022-07-25 18:14] LABS: Albumin 3.4 G/DL (3.4-5.0); Bilirubin,Total 0.4 MG/DL (0.20-1.00); Calcium 8.1 MG/DL (8.5-10.1); Potassium 4.4 MMOL/L (3.5-5.1); Total Protein 7.1 G/DL (6.4-8.2)
[2022-07-25] MEDS ORDERED: ROSUVASTATIN 20 MG TABLET PO SCH (21:00)
[2022-07-25] MEDS: RANOLAZINE 500 MG TABLET PO SCH (21:20)
[2022-07-25] MEDS: TICAGRELOR 90 MG TABLET PO SCH (21:21)
[2022-07-25] MEDS ORDERED: MECLIZINE 25 MG TABLET PO PRN (23:04)
[2022-07-25] MEDS ORDERED: ACETAMINOPHEN 325 MG TABLET PO PRN (23:06)
[2022-07-25] MEDS ORDERED: GABAPENTIN 100 MG CAPSULE PO SCH (23:30)
[2022-07-25] MEDS: DIAZEPAM 5 MG TABLET PO PRN (23:50)
[2022-07-26 05:01] LABS: Basophils % 0.5 % (0.0-0.8); Eosinophils # 0.2 10*3/uL (0.0-0.87); Eosinophils % 2.5 % (0.00-10.9); Hematocrit 31.5 VOL% (35.7-47.0); Immature Granulocytes % 0.4 %; Immature Granulocytes Absolute 0.03 #; Lymphocytes # 1.6 10*3/uL (1.4-4.0); Lymphocytes % 19.2 % (21.3-54.2); Mean Corpuscular HGB Conc 31.7 GM/DL (32-36); Mean Corpuscular Volume 82.9 FL (87-102); Mean Platelet Volume 10.8 FL (9.6-12.0); Monocytes # 0.8 10*3/uL (0.11-0.8); Neutrophils % 68.4 % (38.7-73.9); Platelet Count 220 T/CUMM (130-400); Red Cell Distribution Width 13.5 % (9.3-17.3); White Blood Count 8.5 T/CUMM (4-12)
[2022-07-26 05:29] LABS: Osmolality,Calculated 267.1 MOS/KG (273-304); Potassium 4.3 MMOL/L (3.5-5.1); Risk Ratio 2.38; VLDL Cholesterol 41.4 MG/DL
[2022-07-26] MEDS ORDERED: hydroCHLOROthiazide 12.5 MG CAPSULE PO SCH (09:00)
[2022-07-26] MEDS ORDERED: OLMESARTAN 20 MG TABLET PO SCH (09:00)
[2022-07-26] MEDS ORDERED: ISOSORBIDE MONONITRATE 30 MG TABLET PO SCH (09:00)
[2022-07-26] MEDS ORDERED: ASPIRIN EC 81 MG TABLET PO SCH (09:00)
[2022-07-26] MEDS ORDERED: amLODIPine 5 MG TABLET PO SCH (09:00)
[2022-07-26] MEDS: RANOLAZINE 500 MG TABLET PO SCH (09:42)
[2022-07-26] MEDS: TICAGRELOR 90 MG TABLET PO SCH (09:43)
[2022-07-26] MEDS: PANTOPRAZOLE 40 MG TABLET PO SCH (09:43)
[2022-07-26] MEDS: DIAZEPAM 5 MG TABLET PO PRN (11:47)
[2022-07-26 12:28] VITALS: BP 136/86
== END 2022-07-26 15:50 | disposition home or self-care (01) ==
LOC: N.2W
PROVIDERS: ADMIT Internal Medicine Cardiovascular Disease; ATTEND Internal Medicine Cardiovascular Disease

== ENCOUNTER 2022-08-23 09:11 | Observation (INO) ==
[~2022-08-23 09:11] MED LIST: ASPIRIN 325 MG TABLET PO ONE; MAGNESIUM SULF RIDER 2 GM/50 ML PREMIX IV PRN; POTASSIUM CHLORIDE RIDER 10 MEQ/100 ML PREMIX IV PRN; diphenhydrAMINE CAP 50 MG CAPSULE PO ONE
[2022-08-23] MEDS ORDERED: HEPARIN/NACL 0.9% 2 UNITS/ML 2,000 UNIT/1,000 ML BAG IV ONE (09:37)
[2022-08-23 10:07] LABS: Basophils % 0.5 % (0.0-0.8); Eosinophils # 0.2 10*3/uL (0.0-0.87); Eosinophils % 2.6 % (0.00-10.9); Hematocrit 31.6 VOL% (35.7-47.0); Hemoglobin 9.9 GM/DL (12.0-16.0); Immature Granulocytes % 0.5 %; Immature Granulocytes Absolute 0.04 #; Lymphocytes % 11.8 % (21.3-54.2); Mean Corpuscular HGB Conc 31.3 GM/DL (32-36); Mean Corpuscular Volume 80.4 FL (87-102); Mean Platelet Volume 11.2 FL (9.6-12.0); Monocytes # 0.8 10*3/uL (0.11-0.8); Neutrophils % 75.6 % (38.7-73.9); Platelet Count 205 T/CUMM (130-400); Red Blood Count 3.93 MC/CUMM (3.8-5.5); Red Cell Distribution Width 13.9 % (9.3-17.3); White Blood Count 8.8 T/CUMM (4-12)
[2022-08-23] MEDS ORDERED: DIAZEPAM 5 MG TABLET PO ONE (10:10)
[2022-08-23] MEDS ORDERED: DIAZEPAM 5 MG TABLET ONE (10:14)
[2022-08-23] MEDS ORDERED: ASPIRIN 325 MG TABLET ONE (10:14)
[2022-08-23] MEDS ORDERED: diphenhydrAMINE CAP 50 MG CAPSULE ONE (10:14)
[2022-08-23] MEDS: SODIUM CHLORIDE 0.9% 1,000 ML IV SCH ×2 (10:15→21:42)
[2022-08-23 10:16] LABS: INR 1.3; PT Patient Result 13.6 SECS (10.1-12.1)
[2022-08-23 10:21] LABS: Calcium 8.8 MG/DL (8.5-10.1); Osmolality,Calculated 272.2 MOS/KG (273-304); Potassium 4.6 MMOL/L (3.5-5.1)
[2022-08-23] MEDS ORDERED: MIDAZOLAM 2 MG/2 ML VIAL ONE ×4 (11:07→11:43)
[2022-08-23] MEDS ORDERED: fentaNYL 100 MCG/2 ML VIAL ONE ×2 (11:07→11:20)
[2022-08-23] MEDS ORDERED: ONDANSETRON 4 MG/2 ML VIAL ONE (11:11)
[2022-08-23] MEDS ORDERED: BIVALIRUDIN 250 MG VIAL IV ONE (11:28)
[2022-08-23] MEDS ORDERED: HEPARIN/NACL 0.9% 2 UNITS/ML 1,000 UNIT/500 ML BAG IV ONE (11:46)
[2022-08-23] MEDS ORDERED: PROMETHAZINE 25 MG TABLET PO PRN (12:53)
[2022-08-23] MEDS ORDERED: FLUTICASONE 50 MCG NASAL SPRAY 16 GM BOTTLE BOTH NARES PRN (12:53)
[2022-08-23] MEDS ORDERED: FAMOTIDINE 20 MG TABLET PO PRN (12:53)
[2022-08-23] MEDS ORDERED: NITROGLYCERIN SL 0.4 MG TABLET SL PRN (12:53)
[2022-08-23] MEDS ORDERED: cloNIDine 0.1 MG TABLET PO PRN (12:53)
[2022-08-23] MEDS ORDERED: ZALEPLON 5 MG CAPSULE PO PRN (12:58)
[2022-08-23] MEDS ORDERED: ONDANSETRON 4 MG/2 ML VIAL IV PRN (12:58)
[2022-08-23] MEDS ORDERED: DEXTROSE 10% 250 ML BAG IV PRN (13:00)
[2022-08-23] MEDS ORDERED: GLUCAGON 1 MG VIAL IM PRN (13:00)
[2022-08-23] MEDS ORDERED: LACTULOSE 20 GM/30 ML UDCUP PO PRN (14:25)
[2022-08-23] MEDS ORDERED: ALBUTEROL 2.5 MG/3 ML NEB RESP TX PRN (14:30)
[2022-08-23] MEDS ORDERED: tiZANidine 4 MG TABLET PO PRN (14:35)
[2022-08-23] MEDS ORDERED: COQ10 200 MG PO SCH (21:00)
[2022-08-23] MEDS ORDERED: INSULIN GLARGINE 100 UNIT/ML SUBCUT SCH (21:00)
[2022-08-23] MEDS ORDERED: ROSUVASTATIN 20 MG TABLET PO SCH (21:00)
[2022-08-23] MEDS: TICAGRELOR 90 MG TABLET PO SCH (21:02)
[2022-08-23] MEDS: RANOLAZINE 500 MG TABLET PO SCH (21:03)
[2022-08-23] MEDS: ISOSORBIDE MONONITRATE 30 MG TABLET PO SCH (21:03)
[2022-08-23] MEDS: PANTOPRAZOLE 40 MG TABLET PO SCH (21:03)
[2022-08-23] MEDS: GABAPENTIN 100 MG CAPSULE PO SCH (21:03)
[2022-08-23] MEDS: INSULIN REGULAR 100 UNIT/ML SUBCUT SCH ×2 (21:05→21:43)
[2022-08-23] MEDS: cilostazoL 50 MG TABLET PO SCH ×2 (21:05→23:15)
[2022-08-23] MEDS: DIAZEPAM 5 MG TABLET PO PRN (23:49)
[2022-08-23] MEDS: MECLIZINE 25 MG TABLET PO PRN (23:49)
[2022-08-24] MEDS: SODIUM CHLORIDE 0.9% 1,000 ML IV SCH (03:11)
[2022-08-24] MEDS ORDERED: LEVOTHYROXINE 137 MCG TABLET PO SCH (06:30)
[2022-08-24 06:33] LABS: Basophils % 0.4 % (0.0-0.8); Eosinophils # 0.2 10*3/uL (0.0-0.87); Eosinophils % 2.6 % (0.00-10.9); Hematocrit 28.6 VOL% (35.7-47.0); Hemoglobin 8.9 GM/DL (12.0-16.0); Immature Granulocytes % 0.6 %; Immature Granulocytes Absolute 0.05 #; Lymphocytes % 12.3 % (21.3-54.2); Mean Corpuscular HGB Conc 31.1 GM/DL (32-36); Mean Corpuscular Volume 80.8 FL (87-102); Mean Platelet Volume 11.4 FL (9.6-12.0); Monocytes # 0.7 10*3/uL (0.11-0.8); Monocytes % 8.7 % (1.7-12.7); Neutrophils % 75.4 % (38.7-73.9); Platelet Count 186 T/CUMM (130-400); Red Blood Count 3.54 MC/CUMM (3.8-5.5); Red Cell Distribution Width 13.9 % (9.3-17.3); White Blood Count 8.2 T/CUMM (4-12)
[2022-08-24 07:32] LABS: Calcium 7.1 MG/DL (8.5-10.1); Osmolality,Calculated 274.7 MOS/KG (273-304); Potassium 4.1 MMOL/L (3.5-5.1); Risk Ratio 2.33; VLDL Cholesterol 22.2 MG/DL
[2022-08-24 07:54] VITALS: BP 124/50
[2022-08-24] MEDS: INSULIN REGULAR 100 UNIT/ML SUBCUT SCH ×2 (08:25→11:00)
[2022-08-24] MEDS: GABAPENTIN 100 MG CAPSULE PO SCH (08:54)
[2022-08-24] MEDS: ISOSORBIDE MONONITRATE 30 MG TABLET PO SCH (08:56)
[2022-08-24] MEDS: TICAGRELOR 90 MG TABLET PO SCH (08:56)
[2022-08-24] MEDS: PANTOPRAZOLE 40 MG TABLET PO SCH (08:57)
[2022-08-24] MEDS ORDERED: GUAIFENESIN 400 MG PO SCH (09:00)
[2022-08-24] MEDS ORDERED: VENLAFAXINE XR 37.5 MG CAPSULE PO SCH (09:00)
[2022-08-24] MEDS ORDERED: LORATADINE 10 MG TABLET PO SCH (09:00)
[2022-08-24] MEDS ORDERED: MAGNESIUM OXIDE 400 MG TABLET PO SCH (09:00)
[2022-08-24] MEDS ORDERED: CALCIUM (CARBONATE) 500 MG TABLET PO SCH (09:00)
[2022-08-24] MEDS ORDERED: hydroCHLOROthiazide 25 MG TABLET PO SCH (09:00)
[2022-08-24] MEDS ORDERED: DOCUSATE SODIUM 100 MG CAPSULE PO SCH (09:00)
[2022-08-24] MEDS ORDERED: MULTIVITAMIN (CENTRUM) TABLET PO SCH (09:00)
[2022-08-24] MEDS ORDERED: OLMESARTAN 20 MG TABLET PO SCH (09:00)
[2022-08-24] MEDS ORDERED: amLODIPine 5 MG TABLET PO SCH (09:00)
[2022-08-24] MEDS ORDERED: ASPIRIN EC 81 MG TABLET PO SCH (09:00)
[2022-08-24] MEDS ORDERED: POLYETHYLENE GLYCOL POWDER 17 GM PACK PO SCH (09:00)
[2022-08-24] MEDS: cilostazoL 50 MG TABLET PO SCH (09:02)
[2022-08-24] MEDS: RANOLAZINE 500 MG TABLET PO SCH (09:02)
[2022-08-24] MEDS: MECLIZINE 25 MG TABLET PO PRN (09:02)
[2022-08-24] MEDS: DIAZEPAM 5 MG TABLET PO PRN (09:02)
== END 2022-08-24 12:00 | disposition home or self-care (01) ==
LOC: N.CL 09:11 → N.2W 09:11 → N.CL 09:17 → N.2W 14:17 → N.CL 08-24 12:00 → N.2W 08-26 06:24
PROVIDERS: ADMIT Internal Medicine Cardiovascular Disease; ATTEND Internal Medicine Cardiovascular Disease
PROC: CLCCHCL (ICD-10-PCS; 2022-08-23 13:15)

== ENCOUNTER 2022-11-08 10:15 | Inpatient (IN) ==
[2022-11-08] MEDS ORDERED: ASPIRIN 325 MG TABLET PO ONE (10:37)
[2022-11-08] MEDS ORDERED: POTASSIUM CHLORIDE RIDER 10 MEQ/100 ML PREMIX IV PRN (10:37)
[2022-11-08] MEDS ORDERED: DIAZEPAM 5 MG TABLET PO ONE (10:37)
[2022-11-08] MEDS ORDERED: diphenhydrAMINE CAP 50 MG CAPSULE PO ONE (10:37)
[2022-11-08] MEDS ORDERED: MAGNESIUM SULF RIDER 2 GM/50 ML PREMIX IV PRN (10:37)
[2022-11-08] MEDS ORDERED: ASPIRIN 325 MG TABLET ONE (11:02)
[2022-11-08] MEDS ORDERED: DIAZEPAM 5 MG TABLET ONE (11:02)
[2022-11-08] MEDS ORDERED: diphenhydrAMINE CAP 50 MG CAPSULE ONE (11:02)
[2022-11-08] MEDS: SODIUM CHLORIDE 0.9% 1,000 ML IV SCH (11:04)
[2022-11-08] MEDS ORDERED: HEPARIN/NACL 0.9% 2 UNITS/ML 2,000 UNIT/1,000 ML BAG IV ONE (11:41)
[2022-11-08] MEDS ORDERED: MIDAZOLAM 2 MG/2 ML VIAL ONE ×5 (12:03→13:12)
[2022-11-08] MEDS ORDERED: ONDANSETRON 4 MG/2 ML VIAL ONE (12:03)
[2022-11-08] MEDS ORDERED: fentaNYL 100 MCG/2 ML VIAL ONE ×3 (12:03→13:13)
[2022-11-08] MEDS ORDERED: BIVALIRUDIN 250 MG VIAL IV ONE (13:03)
[2022-11-08] MEDS ORDERED: MORPHINE 10 MG/1 ML VIAL ONE (13:21)
[2022-11-08] MEDS ORDERED: diphenhydrAMINE 50 MG/1 ML VIAL ONE (13:25)
[2022-11-08] MEDS ORDERED: FAMOTIDINE 20 MG TABLET PO PRN (13:56)
[2022-11-08] MEDS ORDERED: FLUTICASONE 50 MCG NASAL SPRAY 16 GM BOTTLE BOTH NARES PRN (13:56)
[2022-11-08] MEDS ORDERED: NITROGLYCERIN SL 0.4 MG TABLET SL PRN (13:56)
[2022-11-08] MEDS ORDERED: cloNIDine 0.1 MG TABLET PO PRN (13:56)
[2022-11-08] MEDS ORDERED: ONDANSETRON ODT 4 MG TABLET PO PRN (13:56)
[2022-11-08] MEDS ORDERED: GLUCAGON 1 MG VIAL IM PRN (16:57)
[2022-11-08] MEDS ORDERED: DEXTROSE 10% 250 ML BAG IV PRN (17:35)
[2022-11-08] MEDS ORDERED: LACTULOSE 20 GM/30 ML UDCUP PO PRN (17:36)
[2022-11-08] MEDS: ROSUVASTATIN 20 MG TABLET PO SCH (21:40)
[2022-11-08] MEDS: TICAGRELOR 90 MG TABLET PO SCH (21:44)
[2022-11-08] MEDS: ISOSORBIDE MONONITRATE 30 MG TABLET PO SCH (21:45)
[2022-11-08] MEDS: cilostazoL 50 MG TABLET PO SCH (21:46)
[2022-11-08] MEDS: GABAPENTIN 100 MG CAPSULE PO SCH (21:46)
[2022-11-08] MEDS: PANTOPRAZOLE 40 MG TABLET PO SCH (21:46)
[2022-11-08] MEDS: INSULIN GLARGINE 100 UNIT/ML SUBCUT SCH (21:46)
[2022-11-08] MEDS: METHOCARBAMOL 500 MG TABLET PO SCH (21:46)
[2022-11-09] MEDS: INSULIN REGULAR 100 UNIT/ML SUBCUT SCH ×5 (00:34→21:53)
[2022-11-09] MEDS: SODIUM CHLORIDE 0.9% 1,000 ML IV SCH (00:35)
[2022-11-09] MEDS: ACETAMINOPHEN 325 MG TABLET PO PRN (00:53)
[2022-11-09] MEDS ORDERED: NITROGLYCERIN 2% OINT 1 INCH/GM PACK TOP ONE (01:40)
[2022-11-09] MEDS ORDERED: FUROSEMIDE 40 MG/4 ML VIAL IV ONE ×2 (01:41→13:18)
[2022-11-09] MEDS ORDERED: DIAZEPAM 5 MG TABLET PO ONE (01:44)
[2022-11-09] MEDS: ALBUTEROL 2.5 MG/3 ML NEB RESP TX PRN ×4 (02:10→23:58)
[2022-11-09] MEDS: LEVOTHYROXINE 137 MCG TABLET PO SCH (05:58)
[2022-11-09 07:32] LABS: Basophils % 0.1 % (0.0-0.8); Eosinophils % 0.2 % (0.00-10.9); Hematocrit 27.8 VOL% (35.7-47.0); Hemoglobin 8.4 GM/DL (12.0-16.0); Immature Granulocytes % 0.6 %; Immature Granulocytes Absolute 0.09 #; Lymphocytes # 0.7 10*3/uL (1.4-4.0); Lymphocytes % 4.5 % (21.3-54.2); Mean Corpuscular HGB Conc 30.2 GM/DL (32-36); Mean Corpuscular Volume 78.5 FL (87-102); Mean Platelet Volume 11.6 FL (9.6-12.0); Monocytes # 0.9 10*3/uL (0.11-0.8); Monocytes % 5.7 % (1.7-12.7); Neutrophils % 88.9 % (38.7-73.9); Platelet Count 188 T/CUMM (130-400); Red Blood Count 3.54 MC/CUMM (3.8-5.5); Red Cell Distribution Width 14.8 % (9.3-17.3); White Blood Count 15.6 T/CUMM (4-12)
[2022-11-09 07:39] LABS: Calcium 8.4 MG/DL (8.5-10.1); Osmolality,Calculated 280.8 MOS/KG (273-304); Potassium 4.3 MMOL/L (3.5-5.1)
[2022-11-09 07:53] LABS: Anisocytosis 1+; Band Neutrophils 2 % (0-10); Lymphocytes 5 % (20-55); Platelet Estimate Normal; Total Cells Counted 100
[2022-11-09] MEDS: ASPIRIN EC 81 MG TABLET PO SCH (09:31)
[2022-11-09] MEDS: TICAGRELOR 90 MG TABLET PO SCH ×2 (09:32→22:07)
[2022-11-09] MEDS: NEBIVOLOL 5 MG TABLET PO SCH (09:32)
[2022-11-09] MEDS: OLMESARTAN 20 MG TABLET PO SCH (09:32)
[2022-11-09] MEDS: MULTIVITAMIN (CENTRUM) TABLET PO SCH (09:32)
[2022-11-09] MEDS: DOCUSATE SODIUM 100 MG CAPSULE PO SCH (09:33)
[2022-11-09] MEDS: VENLAFAXINE XR 37.5 MG CAPSULE PO SCH (09:33)
[2022-11-09] MEDS: ISOSORBIDE MONONITRATE 30 MG TABLET PO SCH ×2 (09:34→22:07)
[2022-11-09] MEDS: MAGNESIUM OXIDE 400 MG TABLET PO SCH (09:34)
[2022-11-09] MEDS: GABAPENTIN 100 MG CAPSULE PO SCH ×2 (09:34→21:54)
[2022-11-09] MEDS: cilostazoL 50 MG TABLET PO SCH (09:35)
[2022-11-09] MEDS: amLODIPine 5 MG TABLET PO SCH (09:35)
[2022-11-09] MEDS: CALCIUM CARBONATE CHEW 500 MG TABLET PO SCH (09:36)
[2022-11-09] MEDS: PANTOPRAZOLE 40 MG TABLET PO SCH ×2 (09:36→21:54)
[2022-11-09] MEDS: LORATADINE 10 MG TABLET PO SCH (09:43)
[2022-11-09] MEDS: hydroCHLOROthiazide 25 MG TABLET PO SCH (09:44)
[2022-11-09] MEDS ORDERED: AZITHROMYCIN 250 MG TABLET PO ONE (13:20)
[2022-11-09] MEDS: DIAZEPAM 5 MG TABLET PO PRN ×2 (14:11→21:55)
[2022-11-09] MEDS ORDERED: NITROGLYCERIN 2% OINT 1 INCH/GM PACK TOP SCH (14:30)
[2022-11-09] MEDS: NITROGLYCERIN 2% OINT 1 INCH/GM PACK TOP SCH ×2 (15:50→22:13)
[2022-11-09] MEDS: INSULIN GLARGINE 100 UNIT/ML SUBCUT SCH (21:53)
[2022-11-09] MEDS: ROSUVASTATIN 20 MG TABLET PO SCH (21:55)
[2022-11-09] MEDS: METHOCARBAMOL 500 MG TABLET PO SCH (22:08)
[2022-11-10] MEDS: ACETAMINOPHEN 325 MG TABLET PO PRN (00:49)
[2022-11-10] MEDS: NITROGLYCERIN 2% OINT 1 INCH/GM PACK TOP SCH ×4 (04:27→22:40)
[2022-11-10 05:29] LABS: Calcium 9.1 MG/DL (8.5-10.1); Osmolality,Calculated 278.8 MOS/KG (273-304); Potassium 3.7 MMOL/L (3.5-5.1)
[2022-11-10 05:30] LABS: Basophils % 0.3 % (0.0-0.8); Eosinophils # 0.2 10*3/uL (0.0-0.87); Eosinophils % 2.2 % (0.00-10.9); Hematocrit 26.7 VOL% (35.7-47.0); Hemoglobin 8.2 GM/DL (12.0-16.0); Immature Granulocytes % 0.4 %; Immature Granulocytes Absolute 0.04 #; Lymphocytes # 1.5 10*3/uL (1.4-4.0); Lymphocytes % 16.4 % (21.3-54.2); Mean Corpuscular HGB Conc 30.7 GM/DL (32-36); Mean Corpuscular Volume 77.6 FL (87-102); Mean Platelet Volume 11.6 FL (9.6-12.0); Monocytes # 0.9 10*3/uL (0.11-0.8); Monocytes % 9.7 % (1.7-12.7); Platelet Count 163 T/CUMM (130-400); Red Blood Count 3.44 MC/CUMM (3.8-5.5); Red Cell Distribution Width 15.1 % (9.3-17.3); White Blood Count 8.9 T/CUMM (4-12)
[2022-11-10] MEDS: LEVOTHYROXINE 137 MCG TABLET PO SCH (06:06)
[2022-11-10] MEDS: INSULIN REGULAR 100 UNIT/ML SUBCUT SCH ×4 (08:18→22:51)
[2022-11-10] MEDS: VENLAFAXINE XR 37.5 MG CAPSULE PO SCH (08:19)
[2022-11-10] MEDS: GABAPENTIN 100 MG CAPSULE PO SCH ×2 (08:19→22:09)
[2022-11-10] MEDS: hydroCHLOROthiazide 25 MG TABLET PO SCH (08:20)
[2022-11-10] MEDS: OLMESARTAN 20 MG TABLET PO SCH (08:20)
[2022-11-10] MEDS: AZITHROMYCIN 250 MG TABLET PO SCH (08:21)
[2022-11-10] MEDS: MULTIVITAMIN (CENTRUM) TABLET PO SCH (08:21)
[2022-11-10] MEDS: amLODIPine 5 MG TABLET PO SCH (08:21)
[2022-11-10] MEDS: DOCUSATE SODIUM 100 MG CAPSULE PO SCH (08:23)
[2022-11-10] MEDS: CALCIUM CARBONATE CHEW 500 MG TABLET PO SCH (08:23)
[2022-11-10] MEDS: ASPIRIN EC 81 MG TABLET PO SCH (08:24)
[2022-11-10] MEDS: ISOSORBIDE MONONITRATE 30 MG TABLET PO SCH ×2 (08:24→22:12)
[2022-11-10] MEDS: TICAGRELOR 90 MG TABLET PO SCH ×2 (08:25→22:13)
[2022-11-10] MEDS: MAGNESIUM OXIDE 400 MG TABLET PO SCH (08:25)
[2022-11-10] MEDS: NEBIVOLOL 5 MG TABLET PO SCH (08:25)
[2022-11-10] MEDS: PANTOPRAZOLE 40 MG TABLET PO SCH ×2 (08:25→22:13)
[2022-11-10] MEDS: LORATADINE 10 MG TABLET PO SCH (08:26)
[2022-11-10] MEDS: DIAZEPAM 5 MG TABLET PO PRN ×2 (09:10→22:12)
[2022-11-10] MEDS ORDERED: FUROSEMIDE 40 MG/4 ML VIAL IV ONE (16:29)
[2022-11-10] MEDS: ALBUTEROL 2.5 MG/3 ML NEB RESP TX PRN (21:51)
[2022-11-10] MEDS: ROSUVASTATIN 20 MG TABLET PO SCH (22:10)
[2022-11-10] MEDS: metFORMIN 500 MG TABLET PO SCH (22:11)
[2022-11-10] MEDS: MECLIZINE 25 MG TABLET PO PRN (22:12)
[2022-11-10] MEDS: INSULIN GLARGINE 100 UNIT/ML SUBCUT SCH (22:31)
[2022-11-10] MEDS: METHOCARBAMOL 500 MG TABLET PO SCH (22:52)
[2022-11-11] MEDS: ALBUTEROL 2.5 MG/3 ML NEB RESP TX PRN (02:20)
[2022-11-11] MEDS: NITROGLYCERIN 2% OINT 1 INCH/GM PACK TOP SCH (04:02)
[2022-11-11] MEDS: LEVOTHYROXINE 137 MCG TABLET PO SCH (05:36)
[2022-11-11 06:27] LABS: Basophils % 0.1 % (0.0-0.8); Eosinophils # 0.3 10*3/uL (0.0-0.87); Eosinophils % 2.2 % (0.00-10.9); Hematocrit 28.1 VOL% (35.7-47.0); Hemoglobin 8.6 GM/DL (12.0-16.0); Immature Granulocytes % 0.6 %; Immature Granulocytes Absolute 0.07 #; Lymphocytes # 1.3 10*3/uL (1.4-4.0); Lymphocytes % 11.5 % (21.3-54.2); Mean Corpuscular HGB Conc 30.6 GM/DL (32-36); Mean Corpuscular Volume 77.4 FL (87-102); Mean Platelet Volume 11.5 FL (9.6-12.0); Monocytes % 8.8 % (1.7-12.7); Neutrophils % 76.8 % (38.7-73.9); Platelet Count 186 T/CUMM (130-400); Red Blood Count 3.63 MC/CUMM (3.8-5.5); Red Cell Distribution Width 14.9 % (9.3-17.3); White Blood Count 11.6 T/CUMM (4-12)
[2022-11-11 06:51] LABS: Calcium 9.4 MG/DL (8.5-10.1); Potassium 3.6 MMOL/L (3.5-5.1)
[2022-11-11] MEDS: INSULIN REGULAR 100 UNIT/ML SUBCUT SCH ×2 (07:44→12:33)
[2022-11-11] MEDS: ISOSORBIDE MONONITRATE 30 MG TABLET PO SCH (09:43)
[2022-11-11] MEDS: DOCUSATE SODIUM 100 MG CAPSULE PO SCH (09:47)
[2022-11-11] MEDS: ASPIRIN EC 81 MG TABLET PO SCH (09:48)
[2022-11-11] MEDS: MULTIVITAMIN (CENTRUM) TABLET PO SCH (09:48)
[2022-11-11] MEDS: VENLAFAXINE XR 37.5 MG CAPSULE PO SCH (09:49)
[2022-11-11] MEDS: CALCIUM CARBONATE CHEW 500 MG TABLET PO SCH (09:49)
[2022-11-11] MEDS: LORATADINE 10 MG TABLET PO SCH (09:50)
[2022-11-11] MEDS: GABAPENTIN 100 MG CAPSULE PO SCH (09:50)
[2022-11-11] MEDS: metFORMIN 500 MG TABLET PO SCH (09:50)
[2022-11-11] MEDS: TICAGRELOR 90 MG TABLET PO SCH (09:51)
[2022-11-11] MEDS: MAGNESIUM OXIDE 400 MG TABLET PO SCH (09:51)
[2022-11-11] MEDS: PANTOPRAZOLE 40 MG TABLET PO SCH (09:51)
[2022-11-11] MEDS: amLODIPine 5 MG TABLET PO SCH (09:54)
[2022-11-11] MEDS: hydroCHLOROthiazide 25 MG TABLET PO SCH (09:54)
[2022-11-11] MEDS: OLMESARTAN 20 MG TABLET PO SCH (09:55)
[2022-11-11] MEDS: AZITHROMYCIN 250 MG TABLET PO SCH (09:59)
[2022-11-11] MEDS: NEBIVOLOL 5 MG TABLET PO SCH (09:59)
[2022-11-11] MEDS: MECLIZINE 25 MG TABLET PO PRN (13:07)
[2022-11-11] MEDS: ACETAMINOPHEN 325 MG TABLET PO PRN (13:07)
[2022-11-11 15:50] VITALS: BP 113/54
== END 2022-11-11 16:00 | disposition home or self-care (01) | DRG 246 ==
LOC: N.CL 10:15 → N.2W 10:15 → N.CL 10:33 → N.2W 16:52
PROVIDERS: ADMIT Internal Medicine Cardiovascular Disease; ATTEND Internal Medicine Cardiovascular Disease
PROC: CLCCHCL (ICD-10-PCS; 2022-11-08 13:45)

== ENCOUNTER 2022-12-10 01:06 | Inpatient (IN) ==
[2022-12-10] MEDS ORDERED: MORPHINE 2 MG/1 ML SYRINGE IV STA ×2 (01:28→03:20)
[2022-12-10] MEDS ORDERED: ASPIRIN 325 MG TABLET PO STA (01:28)
[2022-12-10] MEDS ORDERED: ONDANSETRON 4 MG/2 ML VIAL IV STA (01:28)
[2022-12-10] MEDS ORDERED: LORazepam 2 MG/1 ML VIAL IV STA (01:28)
[2022-12-10] MEDS ORDERED: MECLIZINE 25 MG TABLET PO STA (01:28)
[2022-12-10] MEDS ORDERED: NITROGLYCERIN 2% OINT 1 INCH/GM PACK TOP STA (01:28)
[2022-12-10 01:34] LABS: Basophils % 0.4 % (0.0-0.8); Eosinophils # 0.3 10*3/uL (0.0-0.87); Eosinophils % 3.8 % (0.00-10.9); Hematocrit 30.1 VOL% (35.7-47.0); Hemoglobin 9.4 GM/DL (12.0-16.0); Immature Granulocytes % 0.4 %; Immature Granulocytes Absolute 0.03 #; Lymphocytes # 1.2 10*3/uL (1.4-4.0); Lymphocytes % 14.2 % (21.3-54.2); Mean Corpuscular HGB Conc 31.2 GM/DL (32-36); Mean Corpuscular Volume 74.9 FL (87-102); Mean Platelet Volume 10.4 FL (9.6-12.0); Monocytes # 0.6 10*3/uL (0.11-0.8); Monocytes % 7.6 % (1.7-12.7); Neutrophils % 73.6 % (38.7-73.9); Platelet Count 170 T/CUMM (130-400); Red Blood Count 4.02 MC/CUMM (3.8-5.5); Red Cell Distribution Width 15.9 % (9.3-17.3); White Blood Count 8.3 T/CUMM (4-12)
[2022-12-10 01:45] LABS: PT Patient Result 10.8 SECS (10.1-12.1)
[2022-12-10 01:51] LABS: Alanine Aminotransferase 29 U/L (13-56); Alkaline Phosphatase 83 U/L (45-117); Aspartate Amino Transferase 25 U/L (0-37); Bilirubin,Total < 0.39 MG/DL (0.20-1.00); Blood Urea Nitrogen 16 MG/DL (7-18); Calcium 10.9 MG/DL (8.5-10.1); Carbon Dioxide 28 MMOL/L (21-32); Chloride 102 MMOL/L (98-107); Glucose 181 MG/DL (74-106); Osmolality,Calculated 278.8 MOS/KG (273-304); Potassium 3.7 MMOL/L (3.5-5.1); Sodium 137 MMOL/L (136-145); Total Protein 7.6 G/DL (6.4-8.2)
[2022-12-10] MEDS ORDERED: ALUM/MAG/SIMETH/LIDO VISC 1:1 30 ML BOTTLE PO STA (03:20)
[2022-12-10] MEDS ORDERED: hydrALAZINE 20 MG/1 ML VIAL IV PRN (03:21)
[2022-12-10] MEDS ORDERED: ENOXAPARIN 80 MG/0.8 ML SYRINGE SUBCUT STA (03:27)
[2022-12-10] MEDS ORDERED: INSULIN LISPRO 100 UNIT/ML SUBCUT SCH (03:30)
[2022-12-10] MEDS ORDERED: FUROSEMIDE 40 MG/4 ML VIAL IV ONE ×2 (04:00→06:54)
[2022-12-10] MEDS ORDERED: LORazepam 2 MG/1 ML VIAL IV PRN (04:06)
[2022-12-10 05:58] LABS: % Iron Saturation 3.6 % (18-50); Ferritin 7.1 ng/mL (8-252)
[2022-12-10] MEDS: INSULIN LISPRO 100 UNIT/ML SUBCUT SCH ×3 (06:23→17:33)
[2022-12-10] MEDS ORDERED: CLOPIDOGREL 75 MG TABLET PO ONE (06:30)
[2022-12-10] MEDS: MORPHINE 2 MG/1 ML SYRINGE IV PRN ×2 (06:44→06:47)
[2022-12-10 07:24] LABS: Calcium 11.1 MG/DL (8.5-10.1); Potassium 3.8 MMOL/L (3.5-5.1)
[2022-12-10] MEDS ORDERED: MAGNESIUM SULF RIDER 2 GM/50 ML PREMIX IV PRN (07:36)
[2022-12-10] MEDS ORDERED: POTASSIUM CHLORIDE RIDER 10 MEQ/100 ML PREMIX IV PRN (07:36)
[2022-12-10] MEDS ORDERED: diphenhydrAMINE CAP 50 MG CAPSULE PO ONE (08:00)
[2022-12-10] MEDS ORDERED: NITROGLYCERIN 2% OINT 1 INCH/GM PACK TOP SCH (08:00)
[2022-12-10] MEDS ORDERED: DIAZEPAM 5 MG TABLET PO ONE (08:09)
[2022-12-10] MEDS ORDERED: SODIUM CHLORIDE 0.9% 1,000 ML IV SCH (08:30)
[2022-12-10] MEDS: PANTOPRAZOLE 40 MG TABLET PO SCH (08:30)
[2022-12-10] MEDS: ASPIRIN EC 81 MG TABLET PO SCH (08:30)
[2022-12-10] MEDS: TICAGRELOR 90 MG TABLET PO SCH ×2 (08:30→20:22)
[2022-12-10] MEDS ORDERED: HEPARIN/NACL 0.9% 2 UNITS/ML 2,000 UNIT/1,000 ML BAG IV ONE (08:51)
[2022-12-10] MEDS ORDERED: ASPIRIN EC 81 MG TABLET PO SCH (09:00)
[2022-12-10] MEDS ORDERED: TICAGRELOR 90 MG TABLET PO SCH (09:00)
[2022-12-10] MEDS ORDERED: MIDAZOLAM 2 MG/2 ML VIAL ONE ×2 (09:03→09:24)
[2022-12-10] MEDS ORDERED: fentaNYL 100 MCG/2 ML VIAL ONE (09:03)
[2022-12-10] MEDS ORDERED: ONDANSETRON 4 MG/2 ML VIAL ONE (09:04)
[2022-12-10] MEDS ORDERED: ENOXAPARIN 30 MG/0.3 ML SYRINGE ONE (09:44)
[2022-12-10] MEDS ORDERED: EPTIFIBATIDE 75 MG/100 ML BOTTLE IV ONE (09:44)
[2022-12-10] MEDS ORDERED: EPTIFIBATIDE 20,000 MCG/10 ML VIAL ONE (09:46)
[2022-12-10] MEDS ORDERED: ALBUTEROL 2.5 MG/3 ML NEB RESP TX PRN (11:34)
[2022-12-10 12:30] LABS: Bacteria,Urine Many /HPF (Few); Bilirubin,Urine Negative (Negative); Blood, Urine Negative (Negative); Glucose,Urine (UA) Negative (Negative); Ketones,Urine Negative (Negative); Nitrite,Urine Negative (Negative); Protein,Urine 30 mg/dL (Negative); RBC,Urine 1 /HPF (0-4); Squamous Epithelial Cell,Urine Occasional /HPF (0-10); Urine Appearance Slightly Cloudy (Clear); Urine Color Yellow (Yellow); Urine Urobilinogen 0.2 eU/dL (<2.0)
[2022-12-10] MEDS: FUROSEMIDE 40 MG/4 ML VIAL IV SCH (17:33)
[2022-12-10 17:51] LABS: Arterial Base Excess iSTAT 4 MMOL/L (-2.5-2.5); Arterial Bicarbonate iSTAT 29.4 MMOL/L (20-26); Arterial O2 Saturation iSTAT 91 % (95-100); Arterial PCO2 iSTAT 49 MM HG (35-48); Arterial PO2 iSTAT 63 MM HG (80-95); Arterial Total CO2 iSTAT 31 MMO/L (23-27); Arterial pH iSTAT 7.388 (7.35-7.45)
[2022-12-10] MEDS: ISOSORBIDE MONONITRATE 30 MG TABLET PO SCH (20:21)
[2022-12-10] MEDS: ROSUVASTATIN 20 MG TABLET PO SCH (20:21)
[2022-12-10] MEDS: FAMOTIDINE 20 MG TABLET PO SCH (20:22)
[2022-12-10] MEDS: GABAPENTIN 100 MG CAPSULE PO SCH (20:22)
[2022-12-10] MEDS ORDERED: cilostazoL 50 MG TABLET PO SCH (21:00)
[2022-12-11] MEDS: INSULIN LISPRO 100 UNIT/ML SUBCUT SCH ×5 (00:24→20:32)
[2022-12-11 03:39] LABS: Basophils % 0.1 % (0.0-0.8); Hematocrit 25.4 VOL% (35.7-47.0); Hemoglobin 7.7 GM/DL (12.0-16.0); Immature Granulocytes % 0.9 %; Lymphocytes # 0.8 10*3/uL (1.4-4.0); Lymphocytes % 3.5 % (21.3-54.2); Mean Corpuscular HGB Conc 30.3 GM/DL (32-36); Mean Corpuscular Volume 75.1 FL (87-102); Mean Platelet Volume 11.2 FL (9.6-12.0); Monocytes # 1.3 10*3/uL (0.11-0.8); Neutrophils % 89.5 % (38.7-73.9); Platelet Count 188 T/CUMM (130-400); Red Blood Count 3.38 MC/CUMM (3.8-5.5); Red Cell Distribution Width 15.9 % (9.3-17.3); White Blood Count 21.5 T/CUMM (4-12)
[2022-12-11 03:46] LABS: Calcium 9.9 MG/DL (8.5-10.1); Osmolality,Calculated 281.8 MOS/KG (273-304)
[2022-12-11 03:49] LABS: Calcium 10.4 MG/DL (8.5-10.1); Osmolality,Calculated 282.8 MOS/KG (273-304); Risk Ratio 1.88; VLDL Cholesterol 25.6 MG/DL
[2022-12-11 04:04] LABS: Lymphocytes 5 % (20-55); Platelet Estimate Adequate; Total Cells Counted 100
[2022-12-11 04:05] LABS: Hypochromia 1+; Microcytosis 1+
[2022-12-11 05:30] LABS: Arterial Base Excess iSTAT 4 MMOL/L (-2.5-2.5); Arterial O2 Saturation iSTAT 96 % (95-100); Arterial PCO2 iSTAT 45 MM HG (35-48); Arterial PO2 iSTAT 78 MM HG (80-95); Arterial Total CO2 iSTAT 30 MMO/L (23-27)
[2022-12-11] MEDS: LEVOTHYROXINE 137 MCG TABLET PO SCH (06:38)
[2022-12-11] MEDS ORDERED: FUROSEMIDE 40 MG/4 ML VIAL IV ONE ×2 (08:09→23:55)
[2022-12-11] MEDS: FUROSEMIDE 40 MG/4 ML VIAL IV SCH ×2 (08:13→15:22)
[2022-12-11 08:23] LABS: Basophils % 0.2 % (0.0-0.8); Hematocrit 25.2 VOL% (35.7-47.0); Hemoglobin 7.9 GM/DL (12.0-16.0); Immature Granulocytes % 0.5 %; Lymphocytes # 0.9 10*3/uL (1.4-4.0); Mean Corpuscular HGB Conc 31.3 GM/DL (32-36); Mean Corpuscular Volume 75.4 FL (87-102); Mean Platelet Volume 11.2 FL (9.6-12.0); Monocytes # 1.4 10*3/uL (0.11-0.8); Monocytes % 7.4 % (1.7-12.7); Neutrophils % 86.9 % (38.7-73.9); Platelet Count 165 T/CUMM (130-400); Red Blood Count 3.34 MC/CUMM (3.8-5.5); White Blood Count 18.8 T/CUMM (4-12)
[2022-12-11] MEDS: DOCUSATE SODIUM 100 MG CAPSULE PO SCH (08:23)
[2022-12-11] MEDS: TICAGRELOR 90 MG TABLET PO SCH ×2 (08:23→20:24)
[2022-12-11] MEDS: FAMOTIDINE 20 MG TABLET PO SCH ×2 (08:23→20:24)
[2022-12-11] MEDS: ASPIRIN EC 81 MG TABLET PO SCH (08:23)
[2022-12-11] MEDS: GABAPENTIN 100 MG CAPSULE PO SCH ×2 (08:23→20:24)
[2022-12-11] MEDS: ISOSORBIDE MONONITRATE 30 MG TABLET PO SCH ×2 (08:23→20:24)
[2022-12-11] MEDS: MAGNESIUM OXIDE 400 MG TABLET PO SCH (08:23)
[2022-12-11] MEDS: VENLAFAXINE XR 37.5 MG CAPSULE PO SCH (08:23)
[2022-12-11] MEDS: PANTOPRAZOLE 40 MG TABLET PO SCH (08:23)
[2022-12-11] MEDS: DIAZEPAM 5 MG TABLET PO PRN ×3 (08:24→20:24)
[2022-12-11] MEDS: LORATADINE 10 MG TABLET PO SCH (08:24)
[2022-12-11 09:14] LABS: RBC,Urine 1 /HPF (0-4); Squamous Epithelial Cell,Urine Occasional /HPF (0-10)
[2022-12-11 09:19] LABS: Bilirubin,Urine Negative (Negative); Blood, Urine Small mg/dL (Negative); Glucose,Urine (UA) Negative (Negative); Ketones,Urine Negative (Negative); Nitrite,Urine Negative (Negative); Protein,Urine Negative (Negative); Urine Appearance Clear (Clear); Urine Color Light Yellow (Yellow); Urine Specific Gravity 1.015 (1.001-1.035); Urine Urobilinogen 0.2 eU/dL (<2.0); Urine pH 6.5 (4.5-8.0)
[2022-12-11] MEDS ORDERED: SODIUM CHLORIDE 0.9% 1,000 ML IV PRN (09:25)
[2022-12-11] MEDS: ONDANSETRON 4 MG/2 ML VIAL IV PRN ×2 (09:38→23:15)
[2022-12-11] MEDS: ACETAMINOPHEN 325 MG TABLET PO PRN (09:38)
[2022-12-11] MEDS ORDERED: MAGNESIUM SULF RIDER 2 GM/50 ML PREMIX IV ONE (10:56)
[2022-12-11] MEDS ORDERED: cefTRIAXone 1,000 MG in SODIUM CHLORIDE 0.9% 100 ML IV ONE (11:06)
[2022-12-11] MEDS: LEVOFLOXACIN INJ 500 MG/100 ML PREMIX IV SCH (14:20)
[2022-12-11] MEDS: ALBUTEROL/IPRATROPIUM 3 ML NEB RESP TX SCH (19:24)
[2022-12-11] MEDS: ROSUVASTATIN 20 MG TABLET PO SCH (20:23)
[2022-12-11 21:36] LABS: Basophils % 0.2 % (0.0-0.8); Eosinophils # 0.1 10*3/uL (0.0-0.87); Eosinophils % 0.4 % (0.00-10.9); Hematocrit 34.3 VOL% (35.7-47.0); Hemoglobin 10.9 GM/DL (12.0-16.0); Immature Granulocytes % 1.1 %; Immature Granulocytes Absolute 0.18 #; Lymphocytes # 0.6 10*3/uL (1.4-4.0); Lymphocytes % 3.4 % (21.3-54.2); Mean Corpuscular HGB Conc 31.8 GM/DL (32-36); Mean Corpuscular Volume 76.9 FL (87-102); Mean Platelet Volume 10.5 FL (9.6-12.0); Monocytes # 1.2 10*3/uL (0.11-0.8); Monocytes % 7.3 % (1.7-12.7); Neutrophils % 87.6 % (38.7-73.9); Platelet Count 139 T/CUMM (130-400); Red Blood Count 4.46 MC/CUMM (3.8-5.5); Red Cell Distribution Width 16.3 % (9.3-17.3); White Blood Count 16.8 T/CUMM (4-12)
[2022-12-11 21:58] LABS: Anisocytosis Slight; Eosinophils 1 % (0-10); Hypochromia Slight; Lymphocytes 2 % (20-55); Total Cells Counted 100
[2022-12-11 21:59] LABS: Microcytosis Slight; Platelet Estimate Adequate
[2022-12-11] MEDS ORDERED: POTASSIUM CHLORIDE 20 MEQ TABLET PO ONE (23:55)
[2022-12-12] MEDS: ALBUTEROL/IPRATROPIUM 3 ML NEB RESP TX SCH ×4 (00:06→18:59)
[2022-12-12] MEDS: DIAZEPAM 5 MG TABLET PO PRN ×2 (01:48→08:20)
[2022-12-12] MEDS: MORPHINE 2 MG/1 ML SYRINGE IV PRN (02:53)
[2022-12-12 05:46] LABS: Basophils % 0.2 % (0.0-0.8); Eosinophils # 0.1 10*3/uL (0.0-0.87); Eosinophils % 0.4 % (0.00-10.9); Hematocrit 32.4 VOL% (35.7-47.0); Hemoglobin 10.3 GM/DL (12.0-16.0); Immature Granulocytes % 0.8 %; Immature Granulocytes Absolute 0.13 #; Lymphocytes # 1.1 10*3/uL (1.4-4.0); Lymphocytes % 6.5 % (21.3-54.2); Mean Corpuscular HGB Conc 31.8 GM/DL (32-36); Mean Corpuscular Volume 76.2 FL (87-102); Monocytes # 1.5 10*3/uL (0.11-0.8); Monocytes % 9.3 % (1.7-12.7); Neutrophils % 82.8 % (38.7-73.9); Platelet Count 145 T/CUMM (130-400); Red Blood Count 4.25 MC/CUMM (3.8-5.5); Red Cell Distribution Width 16.4 % (9.3-17.3); White Blood Count 16.2 T/CUMM (4-12)
[2022-12-12 06:16] LABS: Osmolality,Calculated 275.4 MOS/KG (273-304); Potassium 3.6 MMOL/L (3.5-5.1)
[2022-12-12] MEDS: LEVOTHYROXINE 137 MCG TABLET PO SCH (06:18)
[2022-12-12] MEDS ORDERED: MAGNESIUM SULF RIDER 2 GM/50 ML PREMIX IV ONE ×2 (07:00→17:17)
[2022-12-12] MEDS ORDERED: POTASSIUM CHLORIDE 20 MEQ TABLET PO ONE ×2 (07:00→17:17)
[2022-12-12] MEDS: LACTULOSE 20 GM/30 ML UDCUP PO PRN (08:19)
[2022-12-12] MEDS: FUROSEMIDE 40 MG/4 ML VIAL IV SCH ×3 (08:19→20:54)
[2022-12-12] MEDS: INSULIN LISPRO 100 UNIT/ML SUBCUT SCH ×4 (08:19→20:57)
[2022-12-12] MEDS: VENLAFAXINE XR 37.5 MG CAPSULE PO SCH (08:20)
[2022-12-12] MEDS: GABAPENTIN 100 MG CAPSULE PO SCH ×2 (08:20→20:53)
[2022-12-12] MEDS: ISOSORBIDE MONONITRATE 30 MG TABLET PO SCH ×2 (08:20→20:53)
[2022-12-12] MEDS: FAMOTIDINE 20 MG TABLET PO SCH ×2 (08:20→20:53)
[2022-12-12] MEDS: LORATADINE 10 MG TABLET PO SCH (08:20)
[2022-12-12] MEDS: PANTOPRAZOLE 40 MG TABLET PO SCH (08:21)
[2022-12-12] MEDS: ASPIRIN EC 81 MG TABLET PO SCH (08:21)
[2022-12-12] MEDS: DOCUSATE SODIUM 100 MG CAPSULE PO SCH (08:21)
[2022-12-12] MEDS: TICAGRELOR 90 MG TABLET PO SCH ×2 (08:21→20:53)
[2022-12-12] MEDS: MAGNESIUM OXIDE 400 MG TABLET PO SCH (08:21)
[2022-12-12] MEDS: SPIRONOLACTONE 25 MG TABLET PO SCH ×2 (09:24→20:54)
[2022-12-12] MEDS: MECLIZINE 25 MG TABLET PO PRN (11:51)
[2022-12-12] MEDS: LEVOFLOXACIN INJ 500 MG/100 ML PREMIX IV SCH (13:40)
[2022-12-12 17:03] LABS: Potassium 3.4 MMOL/L (3.5-5.1)
[2022-12-12] MEDS: POTASSIUM CHLORIDE 20 MEQ TABLET PO SCH ×2 (17:46→20:53)
[2022-12-12] MEDS: ROSUVASTATIN 20 MG TABLET PO SCH (20:53)
[2022-12-12] MEDS ORDERED: OLANZapine 5 MG TABLET PO SCH (21:00)
[2022-12-13] MEDS: ALBUTEROL/IPRATROPIUM 3 ML NEB RESP TX SCH ×4 (00:42→19:33)
[2022-12-13 04:28] LABS: Basophils % 0.2 % (0.0-0.8); Eosinophils # 0.2 10*3/uL (0.0-0.87); Eosinophils % 1.4 % (0.00-10.9); Hematocrit 32.1 VOL% (35.7-47.0); Hemoglobin 10.4 GM/DL (12.0-16.0); Immature Granulocytes % 0.7 %; Lymphocytes # 1.1 10*3/uL (1.4-4.0); Lymphocytes % 7.9 % (21.3-54.2); Mean Corpuscular HGB Conc 32.4 GM/DL (32-36); Mean Corpuscular Volume 77.3 FL (87-102); Mean Platelet Volume 10.9 FL (9.6-12.0); Monocytes # 1.2 10*3/uL (0.11-0.8); Monocytes % 8.5 % (1.7-12.7); Neutrophils % 81.3 % (38.7-73.9); Platelet Count 166 T/CUMM (130-400); Red Blood Count 4.15 MC/CUMM (3.8-5.5); Red Cell Distribution Width 16.6 % (9.3-17.3); White Blood Count 14.2 T/CUMM (4-12)
[2022-12-13 04:41] LABS: Calcium 8.8 MG/DL (8.5-10.1); Osmolality,Calculated 280.2 MOS/KG (273-304); Potassium 3.9 MMOL/L (3.5-5.1)
[2022-12-13] MEDS: LEVOTHYROXINE 137 MCG TABLET PO SCH (06:30)
[2022-12-13] MEDS: INSULIN LISPRO 100 UNIT/ML SUBCUT SCH ×4 (07:37→22:44)
[2022-12-13] MEDS: FUROSEMIDE 40 MG/4 ML VIAL IV SCH ×2 (08:53→16:00)
[2022-12-13] MEDS: ISOSORBIDE MONONITRATE 30 MG TABLET PO SCH (08:54)
[2022-12-13] MEDS: DOCUSATE SODIUM 100 MG CAPSULE PO SCH (08:54)
[2022-12-13] MEDS: MAGNESIUM OXIDE 400 MG TABLET PO SCH (08:54)
[2022-12-13] MEDS: PANTOPRAZOLE 40 MG TABLET PO SCH (08:54)
[2022-12-13] MEDS: VENLAFAXINE XR 37.5 MG CAPSULE PO SCH (08:54)
[2022-12-13] MEDS: ASPIRIN EC 81 MG TABLET PO SCH (08:54)
[2022-12-13] MEDS: FAMOTIDINE 20 MG TABLET PO SCH ×2 (08:54→20:45)
[2022-12-13] MEDS: GABAPENTIN 100 MG CAPSULE PO SCH ×2 (08:55→20:44)
[2022-12-13] MEDS: LORATADINE 10 MG TABLET PO SCH (08:55)
[2022-12-13] MEDS: SPIRONOLACTONE 25 MG TABLET PO SCH ×2 (08:55→20:44)
[2022-12-13] MEDS: TICAGRELOR 90 MG TABLET PO SCH ×2 (08:55→20:44)
[2022-12-13] MEDS: MECLIZINE 25 MG TABLET PO PRN ×2 (09:42→22:46)
[2022-12-13] MEDS: DIAZEPAM 5 MG TABLET PO PRN (13:45)
[2022-12-13] MEDS: LEVOFLOXACIN INJ 500 MG/100 ML PREMIX IV SCH (13:51)
[2022-12-13] MEDS: ISOSORBIDE MONONITRATE 60 MG TABLET PO SCH (20:44)
[2022-12-13] MEDS: ROSUVASTATIN 20 MG TABLET PO SCH (20:44)
[2022-12-13] MEDS: LACTULOSE 20 GM/30 ML UDCUP PO PRN (21:18)
[2022-12-13] MEDS: MORPHINE 2 MG/1 ML SYRINGE IV PRN (22:45)
[2022-12-14] MEDS: ALBUTEROL/IPRATROPIUM 3 ML NEB RESP TX SCH ×4 (00:24→19:22)
[2022-12-14] MEDS: ONDANSETRON 4 MG/2 ML VIAL IV PRN ×2 (00:46→17:58)
[2022-12-14] MEDS: DIAZEPAM 5 MG TABLET PO PRN (03:24)
[2022-12-14 05:29] LABS: Basophils % 0.2 % (0.0-0.8); Eosinophils # 0.2 10*3/uL (0.0-0.87); Eosinophils % 1.2 % (0.00-10.9); Hematocrit 30.9 VOL% (35.7-47.0); Immature Granulocytes % 0.9 %; Immature Granulocytes Absolute 0.15 #; Lymphocytes # 0.7 10*3/uL (1.4-4.0); Lymphocytes % 4.3 % (21.3-54.2); Mean Corpuscular HGB Conc 32.4 GM/DL (32-36); Mean Corpuscular Volume 76.3 FL (87-102); Mean Platelet Volume 10.7 FL (9.6-12.0); Monocytes # 1.8 10*3/uL (0.11-0.8); Monocytes % 10.7 % (1.7-12.7); Neutrophils % 82.7 % (38.7-73.9); Platelet Count 215 T/CUMM (130-400); Red Blood Count 4.05 MC/CUMM (3.8-5.5); Red Cell Distribution Width 16.8 % (9.3-17.3); White Blood Count 16.4 T/CUMM (4-12)
[2022-12-14 05:40] LABS: Calcium 7.9 MG/DL (8.5-10.1); Osmolality,Calculated 278.7 MOS/KG (273-304); Potassium 3.4 MMOL/L (3.5-5.1)
[2022-12-14] MEDS: LEVOTHYROXINE 137 MCG TABLET PO SCH (05:54)
[2022-12-14] MEDS: POTASSIUM CHLORIDE 20 MEQ TABLET PO PRN ×2 (06:36→09:51)
[2022-12-14 06:37] LABS: Hypochromia Slight; Lymphocytes 4 % (20-55); Microcytosis 1+; Myelocytes 1 %; Total Cells Counted 100
[2022-12-14 06:38] LABS: Ovalocytes Slight; Platelet Estimate Normal
[2022-12-14] MEDS: FUROSEMIDE 40 MG/4 ML VIAL IV SCH ×2 (08:56→17:57)
[2022-12-14] MEDS: MAGNESIUM OXIDE 400 MG TABLET PO SCH (09:51)
[2022-12-14] MEDS: ASPIRIN EC 81 MG TABLET PO SCH (09:51)
[2022-12-14] MEDS: GABAPENTIN 100 MG CAPSULE PO SCH ×2 (09:51→21:33)
[2022-12-14] MEDS: DOCUSATE SODIUM 100 MG CAPSULE PO SCH (09:51)
[2022-12-14] MEDS: TICAGRELOR 90 MG TABLET PO SCH ×2 (09:51→21:33)
[2022-12-14] MEDS: FAMOTIDINE 20 MG TABLET PO SCH ×2 (09:52→21:33)
[2022-12-14] MEDS: PANTOPRAZOLE 40 MG TABLET PO SCH (09:52)
[2022-12-14] MEDS: SPIRONOLACTONE 25 MG TABLET PO SCH (09:52)
[2022-12-14] MEDS: LORATADINE 10 MG TABLET PO SCH (09:52)
[2022-12-14] MEDS: ISOSORBIDE MONONITRATE 60 MG TABLET PO SCH ×2 (09:53→21:34)
[2022-12-14] MEDS: INSULIN LISPRO 100 UNIT/ML SUBCUT SCH ×4 (12:36→21:34)
[2022-12-14] MEDS: LEVOFLOXACIN INJ 500 MG/100 ML PREMIX IV SCH (14:21)
[2022-12-14] MEDS: VENLAFAXINE XR 37.5 MG CAPSULE PO SCH ×2 (14:26→16:53)
[2022-12-14] MEDS: MORPHINE 2 MG/1 ML SYRINGE IV PRN (14:27)
[2022-12-14] MEDS: MECLIZINE 25 MG TABLET PO PRN (17:57)
[2022-12-14] MEDS: ROSUVASTATIN 20 MG TABLET PO SCH (21:34)
[2022-12-15] MEDS: ALBUTEROL/IPRATROPIUM 3 ML NEB RESP TX SCH ×4 (00:40→20:19)
[2022-12-15 05:14] LABS: Basophils % 0.4 % (0.0-0.8); Eosinophils # 0.4 10*3/uL (0.0-0.87); Eosinophils % 3.6 % (0.00-10.9); Hematocrit 30.4 VOL% (35.7-47.0); Hemoglobin 9.6 GM/DL (12.0-16.0); Lymphocytes # 0.9 10*3/uL (1.4-4.0); Lymphocytes % 9.3 % (21.3-54.2); Mean Corpuscular HGB Conc 31.6 GM/DL (32-36); Mean Corpuscular Volume 77.4 FL (87-102); Mean Platelet Volume 10.5 FL (9.6-12.0); Monocytes # 1.1 10*3/uL (0.11-0.8); Neutrophils % 74.7 % (38.7-73.9); Platelet Count 214 T/CUMM (130-400); Red Blood Count 3.93 MC/CUMM (3.8-5.5); Red Cell Distribution Width 17.2 % (9.3-17.3); White Blood Count 9.8 T/CUMM (4-12)
[2022-12-15 05:29] LABS: Calcium 7.2 MG/DL (8.5-10.1); Potassium 3.8 MMOL/L (3.5-5.1)
[2022-12-15] MEDS: LEVOTHYROXINE 137 MCG TABLET PO SCH (06:25)
[2022-12-15] MEDS: FUROSEMIDE 40 MG/4 ML VIAL IV SCH ×2 (07:57→16:57)
[2022-12-15] MEDS: LOSARTAN 25 MG TABLET PO SCH (08:00)
[2022-12-15] MEDS: LORATADINE 10 MG TABLET PO SCH (09:50)
[2022-12-15] MEDS: DOCUSATE SODIUM 100 MG CAPSULE PO SCH (09:50)
[2022-12-15] MEDS: SPIRONOLACTONE 25 MG TABLET PO SCH (09:50)
[2022-12-15] MEDS: GABAPENTIN 100 MG CAPSULE PO SCH ×2 (09:50→21:16)
[2022-12-15] MEDS: TICAGRELOR 90 MG TABLET PO SCH ×2 (09:50→21:16)
[2022-12-15] MEDS: VENLAFAXINE XR 37.5 MG CAPSULE PO SCH (09:51)
[2022-12-15] MEDS: ASPIRIN EC 81 MG TABLET PO SCH (09:51)
[2022-12-15] MEDS: MAGNESIUM OXIDE 400 MG TABLET PO SCH (09:51)
[2022-12-15] MEDS: PANTOPRAZOLE 40 MG TABLET PO SCH (09:51)
[2022-12-15] MEDS: INSULIN LISPRO 100 UNIT/ML SUBCUT SCH ×4 (09:52→21:17)
[2022-12-15] MEDS: ISOSORBIDE MONONITRATE 60 MG TABLET PO SCH ×2 (09:58→20:49)
[2022-12-15] MEDS: FAMOTIDINE 20 MG TABLET PO SCH ×2 (11:08→21:16)
[2022-12-15] MEDS: LEVOFLOXACIN INJ 500 MG/100 ML PREMIX IV SCH (12:41)
[2022-12-15] MEDS: LACTULOSE 20 GM/30 ML UDCUP PO PRN (12:43)
[2022-12-15] MEDS: ACETAMINOPHEN 325 MG TABLET PO PRN (12:45)
[2022-12-15] MEDS: MECLIZINE 25 MG TABLET PO PRN (14:32)
[2022-12-15] MEDS: DIAZEPAM 5 MG TABLET PO PRN (21:16)
[2022-12-15] MEDS: ROSUVASTATIN 20 MG TABLET PO SCH (21:16)
[2022-12-16] MEDS: ALBUTEROL/IPRATROPIUM 3 ML NEB RESP TX SCH ×4 (01:23→19:49)
[2022-12-16] MEDS: LEVOTHYROXINE 137 MCG TABLET PO SCH (05:07)
[2022-12-16] MEDS: DIAZEPAM 5 MG TABLET PO PRN ×2 (05:07→18:02)
[2022-12-16 06:39] LABS: Basophils % 0.3 % (0.0-0.8); Eosinophils # 0.3 10*3/uL (0.0-0.87); Eosinophils % 3.3 % (0.00-10.9); Hematocrit 31.9 VOL% (35.7-47.0); Hemoglobin 10.1 GM/DL (12.0-16.0); Immature Granulocytes Absolute 0.09 #; Lymphocytes # 0.9 10*3/uL (1.4-4.0); Lymphocytes % 10.2 % (21.3-54.2); Mean Corpuscular HGB Conc 31.7 GM/DL (32-36); Mean Corpuscular Volume 78.6 FL (87-102); Mean Platelet Volume 10.5 FL (9.6-12.0); Monocytes % 11.6 % (1.7-12.7); Neutrophils % 73.6 % (38.7-73.9); Platelet Count 226 T/CUMM (130-400); Red Blood Count 4.06 MC/CUMM (3.8-5.5); Red Cell Distribution Width 17.2 % (9.3-17.3)
[2022-12-16 07:11] LABS: Calcium 7.3 MG/DL (8.5-10.1); Osmolality,Calculated 287.2 MOS/KG (273-304); Potassium 3.5 MMOL/L (3.5-5.1)
[2022-12-16] MEDS: LOSARTAN 25 MG TABLET PO SCH (10:54)
[2022-12-16] MEDS: VENLAFAXINE XR 37.5 MG CAPSULE PO SCH (10:54)
[2022-12-16] MEDS: ASPIRIN EC 81 MG TABLET PO SCH (10:54)
[2022-12-16] MEDS: ISOSORBIDE MONONITRATE 60 MG TABLET PO SCH ×2 (10:54→20:58)
[2022-12-16] MEDS: TICAGRELOR 90 MG TABLET PO SCH ×2 (10:54→20:58)
[2022-12-16] MEDS: SPIRONOLACTONE 25 MG TABLET PO SCH (10:54)
[2022-12-16] MEDS: INSULIN LISPRO 100 UNIT/ML SUBCUT SCH ×4 (10:54→20:59)
[2022-12-16] MEDS: DOCUSATE SODIUM 100 MG CAPSULE PO SCH (10:54)
[2022-12-16] MEDS: LORATADINE 10 MG TABLET PO SCH (10:54)
[2022-12-16] MEDS: GABAPENTIN 100 MG CAPSULE PO SCH ×2 (10:55→20:58)
[2022-12-16] MEDS: PANTOPRAZOLE 40 MG TABLET PO SCH (10:55)
[2022-12-16] MEDS: FAMOTIDINE 20 MG TABLET PO SCH ×2 (10:55→20:58)
[2022-12-16] MEDS: MAGNESIUM OXIDE 400 MG TABLET PO SCH (10:55)
[2022-12-16] MEDS: FUROSEMIDE 40 MG/4 ML VIAL IV SCH (10:56)
[2022-12-16] MEDS: LEVOFLOXACIN INJ 500 MG/100 ML PREMIX IV SCH (13:02)
[2022-12-16 14:47] LABS: Bacteria,Urine Occasional /HPF (Few); RBC,Urine 1 /HPF (0-4); Squamous Epithelial Cell,Urine Occasional /HPF (0-10)
[2022-12-16 14:54] LABS: Urine Appearance Clear (Clear); Urine Color Yellow (Yellow)
[2022-12-16 14:55] LABS: Bilirubin,Urine Negative (Negative); Blood, Urine Trace mg/dL (Negative); Glucose,Urine (UA) Negative (Negative); Ketones,Urine Negative (Negative); Nitrite,Urine Negative (Negative); Protein,Urine Negative (Negative)
[2022-12-16 14:57] LABS: Urine Urobilinogen 0.2 eU/dL (<2.0)
[2022-12-16] MEDS: FUROSEMIDE 40 MG TABLET PO SCH (16:00)
[2022-12-16] MEDS: cilostazoL 50 MG TABLET PO SCH ×2 (16:00→20:59)
[2022-12-16] MEDS: ROSUVASTATIN 20 MG TABLET PO SCH (20:58)
[2022-12-17] MEDS: DIAZEPAM 5 MG TABLET PO PRN (00:05)
[2022-12-17] MEDS: ALBUTEROL/IPRATROPIUM 3 ML NEB RESP TX SCH ×3 (00:10→13:13)
[2022-12-17] MEDS: ACETAMINOPHEN 325 MG TABLET PO PRN (02:37)
[2022-12-17 05:02] LABS: Basophils # 0.1 10*3/uL (0.0-0.2); Basophils % 0.4 % (0.0-0.8); Eosinophils # 0.3 10*3/uL (0.0-0.87); Eosinophils % 1.7 % (0.00-10.9); Hematocrit 32.8 VOL% (35.7-47.0); Hemoglobin 10.5 GM/DL (12.0-16.0); Immature Granulocytes % 1.3 %; Immature Granulocytes Absolute 0.19 #; Lymphocytes # 1.3 10*3/uL (1.4-4.0); Lymphocytes % 8.5 % (21.3-54.2); Mean Corpuscular Volume 77.2 FL (87-102); Monocytes # 1.4 10*3/uL (0.11-0.8); Monocytes % 9.1 % (1.7-12.7); Platelet Count 284 T/CUMM (130-400); Red Blood Count 4.25 MC/CUMM (3.8-5.5); Red Cell Distribution Width 17.2 % (9.3-17.3)
[2022-12-17] MEDS: LEVOTHYROXINE 137 MCG TABLET PO SCH (05:14)
[2022-12-17 05:29] LABS: Calcium 7.2 MG/DL (8.5-10.1); Osmolality,Calculated 282.4 MOS/KG (273-304); Potassium 3.7 MMOL/L (3.5-5.1)
[2022-12-17] MEDS ORDERED: MAGNESIUM SULF RIDER 2 GM/50 ML PREMIX IV ONE (07:21)
[2022-12-17] MEDS: FAMOTIDINE 20 MG TABLET PO SCH (09:58)
[2022-12-17] MEDS: ISOSORBIDE MONONITRATE 60 MG TABLET PO SCH (09:59)
[2022-12-17] MEDS: FUROSEMIDE 40 MG TABLET PO SCH (09:59)
[2022-12-17] MEDS: DOCUSATE SODIUM 100 MG CAPSULE PO SCH (09:59)
[2022-12-17] MEDS: ASPIRIN EC 81 MG TABLET PO SCH (09:59)
[2022-12-17] MEDS: SPIRONOLACTONE 25 MG TABLET PO SCH (09:59)
[2022-12-17] MEDS: VENLAFAXINE XR 37.5 MG CAPSULE PO SCH (09:59)
[2022-12-17] MEDS: PANTOPRAZOLE 40 MG TABLET PO SCH (10:00)
[2022-12-17] MEDS: TICAGRELOR 90 MG TABLET PO SCH (10:00)
[2022-12-17] MEDS: INSULIN LISPRO 100 UNIT/ML SUBCUT SCH ×2 (10:00→12:28)
[2022-12-17] MEDS: GABAPENTIN 100 MG CAPSULE PO SCH (10:00)
[2022-12-17] MEDS: LORATADINE 10 MG TABLET PO SCH (10:00)
[2022-12-17] MEDS: cilostazoL 50 MG TABLET PO SCH (10:03)
[2022-12-17 12:04] VITALS: BP 115/60
[2022-12-17] MEDS: LEVOFLOXACIN INJ 500 MG/100 ML PREMIX IV SCH (12:32)
== END 2022-12-17 15:32 | disposition home health service (06) | DRG 250 ==
LOC: N.TELES 01:06 → N.ED 01:06 → SUATTDRO 03:21 → OBSVTOIN 03:21 → N.TELES 04:07 → N.CC 10:39 → N.TELEN 12-13 17:55
PROVIDERS: ADMIT Internal Medicine; ATTEND Internal Medicine
PROC: CLCCHCL (ICD-10-PCS; 2022-12-10 11:45)